=== PATIENT | male | born 1985 | race Caucasian/White ===

== ENCOUNTER 2016-11-14 09:43 | Emergency (ER) | payer OTHER ==
[~2016-11-14] VITALS: Ht 175.3 cm; Wt 81.1 kg
[~2016-11-14 09:43] MED LIST: ACET-1256 PO; IBUP-1050 PO
[2016-11-14 09:51] VITALS: TEMP 36.9; Ht 175.3 cm; Wt 81.1 kg
[2016-11-14] MEDS ORDERED: PARO30TA5 PO (10:12)
[2016-11-14] MEDS ORDERED: QUET1TAB10 PO (10:12)
[2016-11-14] MEDS ORDERED: [UNRECOGNIZED DRUG - CODE] PO (10:12)
[2016-11-14] MEDS ORDERED: KETOROLAC TROMETHAMINE 30 MG/ML VIAL IV STA (10:26)
[2016-11-14] MEDS ORDERED: ONDANSETRON INJ 2 MG/ML 2 ML VIAL IV STA (10:26)
[2016-11-14] MEDS ORDERED: SODIUM CHLORIDE 0.9% 1000ML 1,000 ML IV STA (10:26)
[2016-11-14] MEDS ORDERED: ALBUT/IPRATROP 3MG/0.5MG NEB 3 ML VIAL INH STA (10:26)
--- NOTE | 2016-11-14 10:32 | EMERGENCY ROOM VISIT NOTE ---
History Report prepared by Sarahibmecca: Herminia Knott Under the Supervision of: Dr. Olya Hinton M.D. First contact with patient: 10:18 Chief Complaint: FLU LIKE SX Stated Complaint: FLU LIKE SX History of Present Illness The patient is a 31 year old male who presents to the Emergency Room with complaints of worsening flu-like symptoms over the past week. The patient started off with a cough and a head cold for the past week. Yesterday, he developed a fever which has been between 100 and 101, body aches, hot and cold flashes, nausea, and diarrhea. Currently he complains of ear pain and some shortness of breath. His mother notes that he has been blowing green mucous with occasional blood from his nose. He is a smoker. He hasn't taken any medications for his symptoms this morning. Source of History: patient Onset: a week ago Position: other (global) Quality: other (flu-like symptoms) Timing: worsening Associated Symptoms: + SOB, + chills, + cough, + diarrhea, + fevers, + nausea Note: Other symptoms: ear pain, hot flashes Review of Systems See HPI for pertinent positives & negatives. A total of 10 systems reviewed and were otherwise negative. Past Medical & Surgical Medical Problems: (1) attention deficit disorder (2) Nephrotic syndrome Surgical Problems: (1) S/P tonsillectomy Family History Patient reports no known family medical history. Social History Smoking Status: Current Every Day Smoker Alcohol Use: none Drug Use: none, heroin Marital Status: single Occupation Status: unemployed, disabled Current/Historical Medications Scheduled Paroxetine (Paroxetine HCl), 1 TAB PO DAILY Paroxetine (Paroxetine HCl), 1 TAB PO DAILY Quetiapine Fumarate (Seroquel), 200 MG PO HS Allergies Coded Allergies: No Known Allergies (Unverified , 11/14/16) Physical Exam Vital Signs Date Time Temp Pulse Resp B/P Pulse Ox O2 Delivery O2 Flow Rate FiO2 11/14/16 12:50 82 18 145/65 96 11/14/16 12:24 82 18 145/65 96 Room Air 11/14/16 11:14 66 20 129/79 100 Room Air 11/14/16 10:03 77 11/14/16 09:59 81 98 Room Air 11/14/16 09:51 36.9 152 20 120/68 92 Room Air Physical Exam Vital signs reviewed. General: Disheveled, somewhat ill-appearing 31 year old male, in no significant distress. HEENT: No scleral icterus, PERRLA, poor dentition, neck supple. Atraumatic. Cardiovascular: Regular rate and rhythm, no extra sounds. Pulmonary: Diffuse scattered wheezing, normal work of breathing. Abdomen: Soft, nontender, nondistended, positive bowel sounds. Musculoskeletal: Atraumatic, no peripheral edema. Neurologic: Patient awake alert and oriented x 3, full strength in all 4 extremities. Cranial nerves 2 through 12 grossly intact. Skin: Warm, dry, no rash Medical Decision & Procedures ER Provider Diagnostic Interpretation: Radiology results as stated below per my review and radiologist interpretation: CHEST ONE VIEW PORTABLE CLINICAL HISTORY: fever, cough , SOB COMPARISON STUDY: No previous studies for comparison. FINDINGS: The cardiac and mediastinal contours are normal. There is no evidence of focal pulmonary consolidation. There is no evidence of failure. No pleural effusions are visualized.[ IMPRESSION: No active disease in the chest. Electronically signed by: Schuyler Fajardo M.D. 11/14/2016 10:47 AM Dictated Date/Time: 11/14/2016 10:47 AM Laboratory Results 11/14/16 10:35 Red Blood Count 5.46, Mean Corpuscular Volume 84.4, Mean Corpuscular Hemoglobin 29.7, Mean Corpuscular Hemoglobin Concent 35.1, Mean Platelet Volume 10.3, Neutrophils (%) (Auto) 77.6, Lymphocytes (%) (Auto) 13.4, Monocytes (%) (Auto) 8.6, Eosinophils (%) (Auto) 0.2, Basophils (%) (Auto) 0.2, Neutrophils # (Auto) 6.85, Lymphocytes # (Auto) 1.18, Monocytes # (Auto) 0.76, Eosinophils # (Auto) 0.02, Basophils # (Auto) 0.02 11/14/16 10:35 Test 11/14/16 10:30 11/14/16 10:35 Influenza Type A Antigen Neg for Influ A (NEG) Influenza Type B Antigen Neg for Influ B (NEG) White Blood Count 8.83 K/uL (4.8-10.8) Red Blood Count 5.46 M/uL (4.7-6.1) Hemoglobin 16.2 g/dL (14.0-18.0) Hematocrit 46.1 % (42-52) Mean Corpuscular Volume 84.4 fL (80-100) Mean Corpuscular Hemoglobin 29.7 pg (25-34) Mean Corpuscular Hemoglobin Concent 35.1 g/dl (32-36) Platelet Count 203 K/uL (130-400) Mean Platelet Volume 10.3 fL (7.4-10.4) Neutrophils (%) (Auto) 77.6 % Lymphocytes (%) (Auto) 13.4 % Monocytes (%) (Auto) 8.6 % Eosinophils (%) (Auto) 0.2 % Basophils (%) (Auto) 0.2 % Neutrophils # (Auto) 6.85 K/uL (1.4-6.5) Lymphocytes # (Auto) 1.18 K/uL (1.2-3.4) Monocytes # (Auto) 0.76 K/uL (0.11-0.59) Eosinophils # (Auto) 0.02 K/uL (0-0.5) Basophils # (Auto) 0.02 K/uL (0-0.2) RDW Standard Deviation 40.7 fL (36.4-46.3) RDW Coefficient of Variation 13.3 % (11.5-14.5) Immature Granulocyte % (Auto) 0.0 % Immature Granulocyte # (Auto) 0.00 K/uL (0.00-0.02) Anion Gap 9.0 mmol/L (3-11) Est Creatinine Clear Calc Drug Dose 113.8 ml/min Estimated GFR () 124.0 Estimated GFR (Non- 107.0 BUN/Creatinine Ratio 11.8 (10-20) Calcium Level 9.1 mg/dl (8.5-10.1) Total Bilirubin 0.4 mg/dl (0.2-1) Direct Bilirubin 0.1 mg/dl (0-0.2) Aspartate Amino Transf (AST/SGOT) 85 U/L (15-37) Alanine Aminotransferase (ALT/SGPT) 308 U/L (12-78) Alkaline Phosphatase 106 U/L (45-117) Total Protein 7.6 gm/dl (6.4-8.2) Albumin 4.0 gm/dl (3.4-5.0) Hepatitis A IgM Antibody NON-REACTIVE (NON-REACTIVE) Hepatitis B Surface Antigen NEG (NEG) Hepatitis B Core IgM Antibody NON-REACTIVE (NON-REACTIVE) Hepatitis C Antibody PRELIM POS (NEG) Laboratory results per my review. Medications Administered Medications (Trade) Dose Ordered Sig/Oma Route Start Time Stop Time Status Last Admin Dose Admin Albuterol/ Ipratropium (Duoneb) 3 ml NOW STAT INH 11/14/16 10:26 11/14/16 10:28 DC 11/14/16 10:46 3 ML Ketorolac Tromethamine 30 mg 30 mg NOW STAT IV 11/14/16 10:26 11/14/16 10:28 DC 11/14/16 10:46 30 MG Sodium Chloride (Nss 1000ml) 1,000 ml @ 999 mls/hr Q1H1M STAT IV 11/14/16 10:26 11/14/16 11:26 DC 11/14/16 10:44 999 MLS/HR Ondansetron HCl (Zofran Inj) 4 mg NOW STAT IV 11/14/16 10:26 11/14/16 10:28 DC 11/14/16 10:26 4 MG Albuterol (Ventolin Hfa Inhaler) 2 puffs NOW ONCE INH 11/14/16 12:45 11/14/16 12:46 DC 11/14/16 12:57 2 PUFFS ED Course 1026: The patient was evaluated in room C7. A complete history and physical examination was performed. Ordered Zofran Inj 4 mg IV, NSS 1000 ml @ 999 mls/hr IV, Toradol Inj 30 mg IV, DuoNeb 3 ml INH. 1233: Upon reevaluation, the patient appeared to have improvement of his symptoms. I discussed findings with the patient. He verbalized agreement of the treatment plan. The patient was discharged home. 1245: Ordered Albuterol 2 puffs INH. Medical Decision Fever: Influenza, other viral illness, pneumonia, urinary tract infection, metabolic abnormality, medication effect, cellulitis, meningitis, intra-abdominal source. This patient was evaluated and appeared to be in no significant distress. IV access was obtained and laboratory work was drawn. Chest x-ray was obtained and is negative for acute pathology. Laboratory work reveals elevated liver enzymes, negative influenza swab. Hepatitis panel was added. Patient was informed of the findings. He was advised to Ibuprofen 600 every 6 hours as needed for pain or fever. She was given an albuterol nebulizer treatment. He will drink plenty of clear fluids. The patient will return to the ER for worsening of symptoms or any medical concerns. Impression Primary Impression: Viral illness Scribe Attestation The scribe's documentation has been prepared under my direction and personally reviewed by me in its entirety. I confirm that the note above accurately reflects all work, treatment, procedures, and medical decision making performed by me. Departure Information Dispostion Home / Self-Care Referrals No Doctor, Assigned (PCP) Patient Instructions My [facility] Additional Instructions Diagnosis: Viral illness Drink plenty of clear fluids. Hepatitis panel is pending, call [phone] for results in 24 hours. Ibuprofen 600 mg every 6 hours as needed for pain, fever. Albuterol 2 puffs every 4 hours as needed for wheezing, cough. Follow up with a primary doctor BAKARI. Return to emergency for worsening of symptoms or any medical concerns.
--- NOTE | 2016-11-14 10:48 | DIAGNOSTIC IMAGING REPORT ---
CHEST ONE VIEW PORTABLE CLINICAL HISTORY: fever, cough , SOB COMPARISON STUDY: No previous studies for comparison. FINDINGS: The cardiac and mediastinal contours are normal. There is no evidence of focal pulmonary consolidation. There is no evidence of failure. No pleural effusions are visualized.[ IMPRESSION: No active disease in the chest. Electronically signed by: Schuyler Fajardo M.D. 11/14/2016 10:47 AM Dictated Date/Time: 11/14/2016 10:47 AM
[2016-11-14 10:56] LABS: BASO % 0.2 %; BASO ABS # 0.02 K/uL (0-0.2); COMPLETE YES; EOS % 0.2 %; HEMATOCRIT 46.1 % (42-52); LYMPH % 13.4 %; LYMPH ABS # 1.18 K/uL (1.2-3.4); MEAN CELL VOLUME 84.4 fL (80-100); MEAN CORPUSCULAR HEMOGLOBIN 29.7 pg (25-34); MEAN CORPUSCULAR HGB CONC 35.1 g/dl (32-36); MEAN PLATELET VOLUME 10.3 fL (7.4-10.4); MONO % 8.6 %; NEUT % 77.6 %; PLATELET COUNT 203 K/uL (130-400); RED BLOOD COUNT 5.46 M/uL (4.7-6.1); WHITE BLOOD COUNT 8.83 K/uL (4.8-10.8)
[2016-11-14 11:15] LABS: BUN/CREATININE RATIO 11.8 (10-20); CALCIUM 9.1 mg/dl (8.5-10.1); CREATININE 0.95 mg/dl (0.60-1.40); POTASSIUM 4.2 mmol/L (3.5-5.1)
[2016-11-14] MEDS ORDERED: ALBUTEROL HFA 8 GM INHALER INH ONE (12:45)
[2016-11-14 12:50] VITALS: BP 145/65; PULSE 82; O2SAT 96
[2016-11-15 22:36] LABS: HEPATITIS C RNA TMA QUAL Detected
[2016-12-13] MEDS ORDERED: OMEP40CA41 PO (17:54)
== END 2016-11-14 12:50 | disposition home or self-care (01) ==
LOC: C.EDB 09:46 → C.EDC 12:50
DX: B34.9 Viral infection, unspecified (principal); F90.9 Attention-deficit hyperactivity disorder, unspecified type; F17.200 Nicotine dependence, unspecified, uncomplicated; Z87.441 Personal history of nephrotic syndrome; Z98.890 Other specified postprocedural states; Z79.899 Other long term (current) drug therapy

== ENCOUNTER 2016-12-10 22:45 | Emergency (ER) | payer OTHER ==
[~2016-12-10] VITALS: Ht 154.9 cm; Wt 80.7 kg
[~2016-12-10 22:45] MED LIST changes: -ACET-1256 PO; -IBUP-1050 PO; +PARO30TA5 PO; +QUET1TAB10 PO; +[UNRECOGNIZED DRUG - CODE] PO
[2016-12-10 22:48] VITALS: TEMP 37; Ht 154.9 cm; Wt 80.7 kg
[2016-12-11] MEDS ORDERED: SODIUM CHLORIDE 0.9% 1000ML 1,000 ML IV STA (00:27)
[2016-12-11] MEDS ORDERED: ONDANSETRON INJ 2 MG/ML 2 ML VIAL IV STA ×2 (00:27→02:42)
[2016-12-11] MEDS ORDERED: OPTIRAY 320 IV PRN (00:45)
[2016-12-11 01:05] LABS: BASO % 0.1 %; BASO ABS # 0.01 K/uL (0-0.2); COMPLETE YES; HEMATOCRIT 45.9 % (42-52); IG% 0.4 %; LYMPH % 9.2 %; LYMPH ABS # 1.42 K/uL (1.2-3.4); MEAN CORPUSCULAR HEMOGLOBIN 30.9 pg (25-34); MEAN CORPUSCULAR HGB CONC 37.3 g/dl (32-36); MONO % 6.3 %; PLATELET COUNT 254 K/uL (130-400); RED BLOOD COUNT 5.53 M/uL (4.7-6.1); WHITE BLOOD COUNT 15.36 K/uL (4.8-10.8)
[2016-12-11 01:27] LABS: ALT/SGPT 85 U/L (12-78); AST/SGOT 28 U/L (15-37); BLOOD UREA NITROGEN 20 mg/dl (7-18); CALCIUM 9.5 mg/dl (8.5-10.1); CARBON DIOXIDE 23 mmol/L (21-32); CHLORIDE 106 mmol/L (98-107); GLUCOSE 144 mg/dl (70-99); MAGNESIUM 1.9 mg/dl (1.8-2.4); POTASSIUM 3.6 mmol/L (3.5-5.1); SODIUM 144 mmol/L (136-145)
[2016-12-11 01:29] LABS: ALB/GLOB RATIO 1.3 (0.9-2); ALKALINE PHOSPHATASE 80 U/L (45-117); C-REACTIVE PROTEIN < 0.29 mg/dl (0-0.29)
[2016-12-11 02:17] LABS: URINE APPEARANCE CLOUDY (CLEAR); URINE COLOR DK YELLOW; URINE EPITHELIAL CELL AUTO >30 /lpf (0-5); URINE NITRITE NEG (NEG); URINE PH 5.5 (4.5-7.5); URINE SPECIFIC GRAVITY 1.037 (1.000-1.030); UROBILINOGEN NEG (NEG); ZZUR CULT IF INDIC CLEAN CATCH NO
[2016-12-11 02:23] LABS: MANUAL MICROSCOPIC REQUIRED? NO; REVIEW REQ? YES; URINE BILIRUBIN NEG (NEG)
[2016-12-11 02:33] LABS: URINE MUCUS PRESENT (NONE PRSENT)
[2016-12-11 02:35] LABS: BENZODIAZEPINE, URINE NEG (NEG); COCAINE,URINE NEG (NEG); PHENCYCLIDINE, URINE NEG (NEG)
[2016-12-11] MEDS ORDERED: GI COCKTAIL PO ONE (03:30)
[2016-12-11] MEDS ORDERED: ALUMINUM/MAGNESIUM SUSP 30 ML UDC ONE (03:32)
[2016-12-11] MEDS ORDERED: LIDOCAINE HCL 2% VISC SOLN 20 ML UDC ONE (03:32)
[2016-12-11] MEDS ORDERED: ONDANSETRON HOME PACK 4MG OD TAB PO ONE (04:15)
[2016-12-11] MEDS ORDERED: ONDA4TAB10 SL (04:31)
--- NOTE | 2016-12-11 04:32 | EMERGENCY ROOM VISIT NOTE ---
History First contact with patient: 00:18 Chief Complaint: FLU LIKE SX Stated Complaint: SICK,VOMITING History of Present Illness The patient is a 31 year old male who presents to the Emergency Department by private vehicle for evaluation of his nausea and vomiting. He's had a symptoms for the past 2 days. He started with diarrhea yesterday. He complains of diffuse abdominal pain. He reports no history of previous abdominal surgeries. He denies any recent long distance travel, consumption of raw/undercooked foods, drinking from poor water sources, recent antibiotic use. He denies any recent sick contacts. He reports subjective fevers. He denies any recent alcohol or substance use. He reports a prior history of heroin use. He rates his current discomfort as a 10/10. He denies any chest pain, palpitations, short of breath, hematemesis, hematochezia, melena, hematuria, or dysuria. Review of Systems A complete 10-point Review of Systems was discussed with the patient, with pertinent positives and negatives listed in the History of Present Illness. All remaining Review of Systems questions can be considered negative unless otherwise specified. Past Medical/Surgical History Medical Problems: (1) attention deficit disorder (2) Nephrotic syndrome Surgical Problems: (1) S/P tonsillectomy Family History Patient reports no known family medical history. Social History Smoking Status: Never Smoker Alcohol Use: none Drug Use: heroin Marital Status: single Occupation Status: unemployed, disabled Current/Historical Medications Scheduled Omeprazole (Prilosec), 20 MG PO DAILY Paroxetine (Paroxetine HCl), 1 TAB PO DAILY Paroxetine (Paroxetine HCl), 1 TAB PO DAILY Quetiapine Fumarate (Seroquel), 200 MG PO HS Allergies Coded Allergies: No Known Allergies (Unverified , 12/11/16) Physical Exam Vital Signs Date Time Temp Pulse Resp B/P Pulse Ox O2 Delivery O2 Flow Rate FiO2 12/11/16 04:40 90 16 137/71 100 12/11/16 02:43 68 18 102/67 97 Room Air 12/11/16 00:49 68 18 134/68 98 Room Air 12/11/16 00:27 88 12/10/16 22:48 37.0 78 20 126/79 100 Room Air Pain Rating (0-10): 10 Physical Exam VITAL SIGNS - Vital signs and nursing notes were reviewed. GENERAL - 31-year-old male appearing his stated age who is in no acute distress. Communicates well with provider and answers questions appropriately. LUNGS - Chest wall symmetric without accessory muscle use, intercostals retractions, or central cyanosis. Normal vesicular breath sounds CTA B/L. No wheezes, rales, or rhonchi appreciated. CARDIAC - RRR with S1/S2. No murmur, rubs, or gallops appreciated. ABDOMEN - Abdominal contour flat and without pulsations or visible masses. BS normoactive all four quadrants. Subjective tenderness to palpation appreciated diffusely throughout the abdomen. No guarding. No Rebound Tenderness. Negative Rovsing's. Negative Roman's. No palpable masses, hepatosplenomegaly, or ascites noted. PSYCH - A&Ox3 and cooperates fully with examiner. Medical Decision & Procedures ER Provider Diagnostic Interpretation: Radiological imaging and reports were reviewed by myself. Radiologist's Interpretation per [facility] as follows: CT ABDOMEN & PELVIS: No GI or urinary tract obstruction. Appendix is not identified. No clear inflammation about the cecal tip. Laboratory Results 12/11/16 00:40 Red Blood Count 5.53, Mean Corpuscular Volume 83.0, Mean Corpuscular Hemoglobin 30.9, Mean Corpuscular Hemoglobin Concent 37.3, Mean Platelet Volume 11.0, Neutrophils (%) (Auto) 84.0, Lymphocytes (%) (Auto) 9.2, Monocytes (%) (Auto) 6.3, Eosinophils (%) (Auto) 0.0, Basophils (%) (Auto) 0.1, Neutrophils # (Auto) 12.90, Lymphocytes # (Auto) 1.42, Monocytes # (Auto) 0.97, Eosinophils # (Auto) 0.00, Basophils # (Auto) 0.01 12/11/16 00:40 Test 12/11/16 00:00 12/11/16 00:40 Urine Color DK YELLOW Urine Appearance CLOUDY (CLEAR) Urine pH 5.5 (4.5-7.5) Urine Specific [place] 1.037 (1.000-1.030) Urine Protein 3+ (NEG) Urine Glucose (UA) NEG (NEG) Urine Ketones 2+ (NEG) Urine Occult Blood 2+ (NEG) Urine Nitrite NEG (NEG) Urine Bilirubin NEG (NEG) Urine Urobilinogen NEG (NEG) Urine Leukocyte Esterase NEG (NEG) Urine WBC (Auto) 1-5 /hpf (0-5) Urine RBC (Auto) 5-10 /hpf (0-4) Urine Hyaline Casts (Auto) 10-30 /lpf (0-5) Urine Epithelial Cells (Auto) >30 /lpf (0-5) Urine Bacteria (Auto) NEG (NEG) Urine Renal Epithelial Cells /lpf (0-5) Urine Mucus PRESENT (NONE PRSENT) Urine Opiates Screen NEG (NEG) Urine Methadone, Qualitative NEG (NEG) Urine Barbiturates NEG (NEG) Urine Phencyclidine (PCP) Level NEG (NEG) Ur Amphetamine/Methamphetamine NEG (NEG) MDMA (Ecstasy) Screen NEG (NEG) Urine Benzodiazepines Screen NEG (NEG) Urine Cocaine Metabolite NEG (NEG) Urine Marijuana (THC) NEG (NEG) White Blood Count 15.36 K/uL (4.8-10.8) Red Blood Count 5.53 M/uL (4.7-6.1) Hemoglobin 17.1 g/dL (14.0-18.0) Hematocrit 45.9 % (42-52) Mean Corpuscular Volume 83.0 fL (80-100) Mean Corpuscular Hemoglobin 30.9 pg (25-34) Mean Corpuscular Hemoglobin Concent 37.3 g/dl (32-36) Platelet Count 254 K/uL (130-400) Mean Platelet Volume 11.0 fL (7.4-10.4) Neutrophils (%) (Auto) 84.0 % Lymphocytes (%) (Auto) 9.2 % Monocytes (%) (Auto) 6.3 % Eosinophils (%) (Auto) 0.0 % Basophils (%) (Auto) 0.1 % Neutrophils # (Auto) 12.90 K/uL (1.4-6.5) Lymphocytes # (Auto) 1.42 K/uL (1.2-3.4) Monocytes # (Auto) 0.97 K/uL (0.11-0.59) Eosinophils # (Auto) 0.00 K/uL (0-0.5) Basophils # (Auto) 0.01 K/uL (0-0.2) RDW Standard Deviation 39.8 fL (36.4-46.3) RDW Coefficient of Variation 13.1 % (11.5-14.5) Immature Granulocyte % (Auto) 0.4 % Immature Granulocyte # (Auto) 0.06 K/uL (0.00-0.02) Anion Gap 15.0 mmol/L (3-11) Est Creatinine Clear Calc Drug Dose 74.8 ml/min Estimated GFR () 84.9 Estimated GFR (Non- 73.2 BUN/Creatinine Ratio 15.0 (10-20) Calcium Level 9.5 mg/dl (8.5-10.1) Magnesium Level 1.9 mg/dl (1.8-2.4) Total Bilirubin 0.8 mg/dl (0.2-1) Aspartate Amino Transf (AST/SGOT) 28 U/L (15-37) Alanine Aminotransferase (ALT/SGPT) 85 U/L (12-78) Alkaline Phosphatase 80 U/L (45-117) C-Reactive Protein < 0.29 mg/dl (0-0.29) Total Protein 8.5 gm/dl (6.4-8.2) Albumin 4.8 gm/dl (3.4-5.0) Globulin 3.7 gm/dl (2.5-4.0) Albumin/Globulin Ratio 1.3 (0.9-2) Lipase 198 U/L (73-393) Medications Administered Medications (Trade) Dose Ordered Sig/Oma Route Start Time Stop Time Status Last Admin Dose Admin Sodium Chloride (Nss 1000ml) 1,000 ml @ 999 mls/hr Q1H1M STAT IV 12/11/16 00:27 12/11/16 01:27 DC 12/11/16 00:33 999 MLS/HR Ondansetron HCl (Zofran Inj) 4 mg NOW STAT IV 12/11/16 00:27 12/11/16 00:29 DC 12/11/16 00:33 4 MG Ondansetron HCl (Zofran Inj) 4 mg NOW STAT IV 12/11/16 02:42 12/11/16 02:43 DC 12/11/16 02:42 4 MG Al Hydroxide/Mg Hydroxide (Maalox Susp) 30 ml STK-MED ONCE .ROUTE 12/11/16 03:32 12/11/16 03:35 DC 12/11/16 03:36 30 ML Lidocaine HCl (Viscous Lidocaine 2% Soln) 20 ml STK-MED ONCE .ROUTE 12/11/16 03:32 12/11/16 03:36 DC 12/11/16 03:32 20 ML Ondansetron HCl (ZOFRAN ODT 4MG Home Pack) 1 homepack UD ONCE PO 12/11/16 04:15 12/11/16 04:16 DC 12/11/16 04:40 1 HOMEPACK ED Course Patient was seen and evaluated by myself. Previous emergency department visit notes were reviewed. Labs were drawn, saline lock in place. Patient was hydrated with 1000 mL normal saline bolus and received 4 mg Zofran intravenously for nausea. Laboratory results demonstrate a moderate leukocytosis. The patient is not anemic. There are no significant electrolyte abnormalities. CRP is not elevated. The patient was treated with an additional 4 mg Zofran for nausea part returning from CT. He was provided a GI cocktail as well. CT results above. Laboratory results and imaging studies were reviewed with the patient who acknowledges understanding. He was encouraged to follow with his primary care provider from today's visit. He was educated on worrisome symptoms for return visit to the emergency department. Patient discharged home afebrile and in good condition. Medical Decision Given the patient's presentation and stated complaints, I did elect to perform the above-mentioned workup. The patient presents today with nausea, vomiting, diarrhea, and subjective abdominal discomfort. He has no fever. He does have a leukocytosis, however. His CRP is not elevated to suggest acute setting of infectious cause. Leukocytosis concerning be related to stress factors related to vomiting. CT was unremarkable. Patient has history of drug abuse. He was treated with IV Zofran and GI cocktail with moderate relief of symptoms. The patient was encouraged to follow-up with his primary care provider from today's visit. He was educated on worrisome symptoms for return visit to the emergency department. Patient discharged home afebrile and in good condition. In the evaluation and treatment of this patient, the following differential diagnoses were considered: Appendicitis, Diverticulitis, Diverticulosis, Colitis , Ischemic Colitis, Inflammatory Bowel Disease, Irritable Bowel Disease, Testicular Torsion, Kidney Stone, Pyelonephritis, Hydronephrosis, Cholecystitis , Ascending Cholangitis, Choledocholithiasis, GERD. Impression Primary Impression: Nausea, vomiting and diarrhea Additional Impression: Abdominal pain Departure Information Dispostion Home / Self-Care Condition GOOD Referrals No Doctor, Assigned (PCP) Patient Instructions ED Food Poison Or Gastroenteritis, [facility] Additional Instructions You have been treated in the Emergency Department your Nausea, Vomiting, and Diarrhea. Laboratory results and imaging studies have ruled out any emergent causes for your abdominal pain which would warrant admission or surgery. You have been prescribed Zofran to be used for any nausea or vomiting. Take as prescribed. For pain control, you can use the following [id number] medicines (if >12 yo): - Regular strength (325mg/tab) Tylenol (acetaminophen) 2 tabs every 4-6 hours as needed. Do not exceed 12 tablets in a 24 hour period. Avoid taking more than 4 grams (4000 mg) of Tylenol per day. This includes any other sources of acetaminophen you may take on a regular basis. - Regular strength (200 mg/tab) Advil (ibuprofen) 1-2 tabs every 4-6 hours as needed. Do not exceed a dose of 3200 mg per day. Drink plenty of water and stay well hydrated. As with any trip to the Emergency Department, you should follow-up with your Primary Care Provider from today's visit. Return to the emergency department if your symptoms persist despite treatment plan outlined above or if the following symptoms occur: increased fevers, chills , worsening nausea/vomiting, blood in your stool or urine. Problem Qualifiers Additional Impression: Abdominal pain Abdominal location: right upper quadrant Qualified Codes: R10.11 - Right upper quadrant pain
[2016-12-11 04:40] VITALS: BP 137/71; PULSE 90; O2SAT 100
--- NOTE | 2016-12-11 07:26 | DIAGNOSTIC IMAGING REPORT ---
CT ABD/PELVIS IV CONTRAST ONLY CLINICAL HISTORY: Severe generalized abdominal pain COMPARISON STUDY: None. TECHNIQUE: Following the IV administration of 91 mL of Optiray-320, CT scan of the abdomen and pelvis was performed from the lung bases to the proximal femurs. Images are reviewed in the axial, sagittal, and coronal planes. IV contrast was administered without complication. CT DOSE: 290.04 mGy.cm FINDINGS: Lower chest: The heart is normal in size and configuration, without pericardial effusion. The lung bases and pleural spaces are clear. Liver: The contrast-enhanced liver is normal in size, contour, and attenuation. There is no intrahepatic biliary ductal dilatation. The hepatic veins and portal veins are patent. Gallbladder: Unremarkable. Spleen: Normal in size and attenuation. Pancreas: Unremarkable. Adrenal glands: Unremarkable. Kidneys: There is symmetric renal cortical enhancement. The kidneys are normal in size without hydronephrosis. Bowel: There are no transition zones indicate bowel obstruction. There are no findings to indicate acute diverticulitis. There are no findings to indicate acute appendicitis. Peritoneum: There is no intraperitoneal free air or abdominal ascites. Vasculature: The abdominal aorta is normal in course and caliber. Adenopathy: None. Pelvic viscera: The bladder, and pelvic viscera are unremarkable. Skeletal structures: There is an L1 vertebral body hemangioma. There is a left iliac bone island. There is a left inferior pubic ramus bone island. IMPRESSION: 1. No evidence of bowel obstruction. No evidence of free air 2. No evidence of acute appendicitis. No evidence of acute diverticulitis. Electronically signed by: Schuyler Fajardo M.D. 12/11/2016 7:25 AM Dictated Date/Time: 12/11/2016 7:22 AM
[2016-12-13] MEDS ORDERED: OMEP40CA41 PO (17:54)
== END 2016-12-11 04:40 | disposition home or self-care (01) ==
LOC: C.EDB 22:46
DX: R11.2 Nausea with vomiting, unspecified (principal); R19.7 Diarrhea, unspecified; R10.9 Unspecified abdominal pain; F90.9 Attention-deficit hyperactivity disorder, unspecified type; N04.9 Nephrotic syndrome with unspecified morphologic changes; Z98.890 Other specified postprocedural states; Z79.899 Other long term (current) drug therapy

== ENCOUNTER 2016-12-11 12:39 | Inpatient (IN) | payer OTHER ==
[~2016-12-11] VITALS: Ht 175.3 cm; Wt 82.6 kg
[~2016-12-11 12:39] MED LIST changes: +ONDA4TAB10 SL
[2016-12-11 13:57] LABS: BASO % 0.1 %; BASO ABS # 0.02 K/uL (0-0.2); COMPLETE YES; HEMATOCRIT 45.4 % (42-52); IG% 0.3 %; LYMPH % 12.4 %; LYMPH ABS # 1.89 K/uL (1.2-3.4); MEAN CELL VOLUME 85.5 fL (80-100); MEAN CORPUSCULAR HEMOGLOBIN 31.3 pg (25-34); MEAN CORPUSCULAR HGB CONC 36.6 g/dl (32-36); MONO % 9.5 %; NEUT % 77.7 %; PLATELET COUNT 222 K/uL (130-400); RED BLOOD COUNT 5.31 M/uL (4.7-6.1)
[2016-12-11] MEDS ORDERED: PROMETHAZINE HCL INJ 12.5 MG in SODIUM CHLORIDE 0.9% 50ML 50 ML IV STA (14:15)
[2016-12-11] MEDS ORDERED: MoRPHine SULFATE 10 MG/ML CARP/VIAL IV STA (14:15)
[2016-12-11 14:24] LABS: BUN/CREATININE RATIO 17.6 (10-20); CALCIUM 9.2 mg/dl (8.5-10.1); CREATININE 1.1 mg/dl (0.60-1.40); POTASSIUM 3.5 mmol/L (3.5-5.1)
[2016-12-11 14:27] LABS: ALB/GLOB RATIO 1.3 (0.9-2)
--- NOTE | 2016-12-11 14:43 | DIAGNOSTIC IMAGING REPORT ---
PA CHEST RADIOGRAPH AND UPRIGHT AND SUPINE AP RADIOGRAPHS OF THE ABDOMEN CLINICAL HISTORY: Vomiting. COMPARISON STUDY: Chest radiograph November 14, [address] of the abdomen and pelvis December 11, 2016. FINDINGS: Lung volumes are normal. Lungs are clear. There is no pneumothorax or pleural effusion. Cardiac size is normal. Mediastinal contours are normal. There is no evidence of pulmonary edema. There is no free air. The bowel gas pattern is normal. IMPRESSION: 1. No free air or evidence of bowel obstruction. 2. No acute cardiopulmonary findings. Electronically signed by: Pablo Antunez M.D. 12/11/2016 2:41 PM Dictated Date/Time: 12/11/2016 2:40 PM
[2016-12-11] MEDS ORDERED: MoRPHine SULFATE 4 MG/ML 1 ML CARP\\VIAL IV STA (16:03)
[2016-12-11] MEDS ORDERED: MoRPHine SULFATE 4 MG/ML 1 ML CARP\\VIAL ONE (16:07)
--- NOTE | 2016-12-11 16:09 | EMERGENCY ROOM VISIT NOTE ---
History Report prepared by Meghan: Mehreen Salazar Under the Supervision of: Dr. Klaus Fierro M.D. First contact with patient: 14:08 Chief Complaint: VOMITING Stated Complaint: VOMITING, ABD PAIN History of Present Illness The patient is a 31 year old male who presents to the Emergency Room with complaints of persistent vomiting starting 3 days ago. He is nauseous and unable to keep anything down. The patient was seen in the ED earlier today for the same symptoms and left around 0500. Since then the vomiting has not stopped and might be getting worse according to his family member. He has experienced some hematemesis. He is not experiencing any relief of his symptoms with Zofran. He has had upper abdominal pain starting earlier today. He had some diarrhea 3 days ago at the onset of the vomiting, but currently does not have any diarrhea. The patient's family reports that it might be because he has not been able to eat anything since the symptoms started. He has been taking ice baths at times because he becomes too hot. At times he feels too cold. He denies any bloody stools. He denies any other medical problems. Source of History: family Onset: 3 days ago Position: other (global) Quality: other (vomiting) Timing: other (persistent) Associated Symptoms: + abdominal pain (upper), + chills, + fevers, + nausea , No melena Note: Pt reports feeling too hot and too cold. Review of Systems See HPI for pertinent positives & negatives. A total of 10 systems reviewed and were otherwise negative. Past Medical & Surgical Medical Problems: (1) attention deficit disorder (2) Nephrotic syndrome Surgical Problems: (1) S/P tonsillectomy Family History Patient reports no known family medical history. Social History Smoking Status: Current Every Day Smoker Alcohol Use: none Drug Use: none, heroin Marital Status: single Occupation Status: unemployed, disabled Current/Historical Medications Scheduled Paroxetine (Paroxetine HCl), 1 TAB PO DAILY Paroxetine (Paroxetine HCl), 1 TAB PO DAILY Quetiapine Fumarate (Seroquel), 200 MG PO HS Scheduled PRN Ondasetron Odt (Zofran Odt), 1 TAB SL Q6 PRN for Nausea or Vomiting Allergies Coded Allergies: No Known Allergies (Unverified , 12/11/16) Physical Exam Vital Signs Date Time Temp Pulse Resp B/P Pulse Ox O2 Delivery O2 Flow Rate FiO2 12/11/16 15:35 55 16 133/71 99 Room Air 12/11/16 12:43 37.2 79 22 155/71 98 Room Air Physical Exam Constitutional: Vital signs reviewed. Eyes: Pupils are equal round reactive to light. Conjunctiva are noninjected. ENT: Pharynx is clear without erythema or exudate. Mucous membranes are dry. Neck supple without meningeal signs. Respiratory: Clear to auscultation bilaterally. Breath sounds are equal bilaterally. Cardiovascular: Regular rate and rhythm. No rubs or gallops. GI: Soft, nondistended. Bowel sounds are present. Diffuse abdominal tenderness. Musculoskeletal: No peripheral edema. No lower extremity tenderness. Integumentary: No cyanosis. Neurological: The patient is awake and alert. No focal deficits. Psychiatric: Anxious appearing. Medical Decision & Procedures ER Provider Diagnostic Interpretation: X-ray results as stated below per interpretation by me and the radiologist: PA CHEST RADIOGRAPH AND UPRIGHT AND SUPINE AP RADIOGRAPHS OF THE ABDOMEN CLINICAL HISTORY: Vomiting. COMPARISON STUDY: Chest radiograph November 14, [address] of the abdomen and pelvis December 11, 2016. FINDINGS: Lung volumes are normal. Lungs are clear. There is no pneumothorax or pleural effusion. Cardiac size is normal. Mediastinal contours are normal. There is no evidence of pulmonary edema. There is no free air. The bowel gas pattern is normal. IMPRESSION: 1. No free air or evidence of bowel obstruction. 2. No acute cardiopulmonary findings. Electronically signed by: Pablo Antunez M.D. 12/11/2016 2:41 PM Dictated Date/Time: 12/11/2016 2:40 PM Laboratory Results 12/11/16 13:40 Red Blood Count 5.31, Mean Corpuscular Volume 85.5, Mean Corpuscular Hemoglobin 31.3, Mean Corpuscular Hemoglobin Concent 36.6, Mean Platelet Volume 11.0, Neutrophils (%) (Auto) 77.7, Lymphocytes (%) (Auto) 12.4, Monocytes (%) (Auto) 9.5, Eosinophils (%) (Auto) 0.0, Basophils (%) (Auto) 0.1, Neutrophils # (Auto) 11.79, Lymphocytes # (Auto) 1.89, Monocytes # (Auto) 1.45, Eosinophils # (Auto) 0.00, Basophils # (Auto) 0.02 12/11/16 13:40 Test 3/28/17 13:40 White Blood Count 15.20 K/uL (4.8-10.8) Red Blood Count 5.31 M/uL (4.7-6.1) Hemoglobin 16.6 g/dL (14.0-18.0) Hematocrit 45.4 % (42-52) Mean Corpuscular Volume 85.5 fL (80-100) Mean Corpuscular Hemoglobin 31.3 pg (25-34) Mean Corpuscular Hemoglobin Concent 36.6 g/dl (32-36) Platelet Count 222 K/uL (130-400) Mean Platelet Volume 11.0 fL (7.4-10.4) Neutrophils (%) (Auto) 77.7 % Lymphocytes (%) (Auto) 12.4 % Monocytes (%) (Auto) 9.5 % Eosinophils (%) (Auto) 0.0 % Basophils (%) (Auto) 0.1 % Neutrophils # (Auto) 11.79 K/uL (1.4-6.5) Lymphocytes # (Auto) 1.89 K/uL (1.2-3.4) Monocytes # (Auto) 1.45 K/uL (0.11-0.59) Eosinophils # (Auto) 0.00 K/uL (0-0.5) Basophils # (Auto) 0.02 K/uL (0-0.2) RDW Standard Deviation 41.8 fL (36.4-46.3) RDW Coefficient of Variation 13.5 % (11.5-14.5) Immature Granulocyte % (Auto) 0.3 % Immature Granulocyte # (Auto) 0.05 K/uL (0.00-0.02) Anion Gap 11.0 mmol/L (3-11) Est Creatinine Clear Calc Drug Dose 98.2 ml/min Estimated GFR () 103.9 Estimated GFR (Non- 89.6 BUN/Creatinine Ratio 17.6 (10-20) Calcium Level 9.2 mg/dl (8.5-10.1) Total Bilirubin 0.7 mg/dl (0.2-1) Aspartate Amino Transf (AST/SGOT) 27 U/L (15-37) Alanine Aminotransferase (ALT/SGPT) 73 U/L (12-78) Alkaline Phosphatase 76 U/L (45-117) Total Protein 8.1 gm/dl (6.4-8.2) Albumin 4.5 gm/dl (3.4-5.0) Globulin 3.6 gm/dl (2.5-4.0) Albumin/Globulin Ratio 1.3 (0.9-2) Lipase 172 U/L (73-393) Laboratory results as reviewed by me. Medications Administered Medications (Trade) Dose Ordered Sig/Oma Route Start Time Stop Time Status Last Admin Dose Admin Morphine Sulfate 6 mg 6 mg NOW STAT IV 12/11/16 14:15 12/11/16 14:16 DC 12/11/16 14:45 6 MG Promethazine HCl/ Sodium Chloride (Phenergan Inj/ Nss 50ml) 50.5 ml @ 204 mls/hr NOW STAT IV 12/11/16 14:15 12/11/16 14:29 DC 12/11/16 14:44 204 MLS/HR Morphine Sulfate (MoRPHine SULFATE INJ) 4 mg STK-MED ONCE .ROUTE 12/11/16 16:07 12/11/16 16:08 DC 12/11/16 16:02 4 MG ED Course 1410: The patient was evaluated in room C11. A complete history and physical exam was performed. 1415: Promethazine HCl 12.5 mg/Sodium Chloride 50.5 ml @ 204 mls/hr IV, Morphine Sulfate 6 mg IV. 1527: I reevaluated the patient. He is feeling a little better, but he does not feel well enough to go home. I discussed the results and treatment plan with him. He verbalized understanding and agreement. He will be evaluated for further management. 1530: I discussed the patient's case with Dr. Morales, [facility] - hospitalist. The patient will be evaluated for further management. Medical Decision this is a 31-year-old male who presents with vomiting and abdominal pain.differential diagnosis includes gastritis, cyclic vomiting syndrome, gastroparesis, Boerhaave syndrome, dehydration, bowel obstruction. I did perform a limited focused review of portions of the patient's old chart on the electronic medical record. The patient was here earlier today at around midnight for vomiting and diarrhea. He had an unremarkable CT scan of the abdomen and pelvis. I did evaluate the patient as noted above. The patient is presenting with persistent vomiting and abdominal pain. He just had a negative CT scan of the abdomen and pelvis. IV access was established. I did treat the patient with normal saline IV. He was also given IV morphine and Phenergan. I did order and personally review the patient's abdominal and chest x-rays as described above. There is no evidence of obstruction or free air. I did order and review the patient's blood work as noted in the electronic medical record. His white blood cell count is persistently elevated. I did reassess the patient. He is feeling better. He is still having nausea and does not feel well and left to go home. I did discuss case with the hospitalist and case management rn. Consults Time Called: 1528 Consulting Physician: Leticia Garcia - hospitalist Returned Call: 1530 I discussed the patient's case with him. The patient will be evaluated for further management. Impression Primary Impression: Diffuse abdominal pain Additional Impression: Intractable vomiting Scribe Attestation The scribe's documentation has been prepared under my direct and personally reviewed by me in its entirety. I confirm that the note above accurately reflects all work, treatment, procedures, and medical decision making performed by me. Departure Information Dispostion Being Evaluated By Hospitalist Referrals No Doctor, Assigned (PCP) Patient Instructions My [facility] Problem Qualifiers Additional Impression: Intractable vomiting Vomiting type: unspecified Nausea presence: with nausea Qualified Codes: R11.2 - Nausea with vomiting, unspecified
[2016-12-11] MEDS ORDERED: ACETAMINOPHEN 325 MG TAB PO PRN (16:15)
[2016-12-11] MEDS ORDERED: PROMETHAZINE HCL INJ 25 MG in SODIUM CHLORIDE 0.9% 50ML 50 ML IV PRN (16:15)
[2016-12-11] MEDS ORDERED: PANTOprazole INJ 80 MG in DEXTROSE 5% 100ML IV ONE (16:30)
[2016-12-11] MEDS: PANTOprazole INJ 40 MG in DEXTROSE 5% 100ML IV SCH ×2 (16:54→21:49)
[2016-12-11 17:25] LABS: HEMATOCRIT 42.4 % (42-52)
--- NOTE | 2016-12-11 18:03 | HISTORY & PHYSICAL EXAMINATION ---
DATE OF ADMISSION: 12/11/2016 HISTORY AND PHYSICAL ADMISSION NOTE TIME: 4:23 p.m. HISTORY OF PRESENT ILLNESS: The patient follows up with Dr. Underwood for primary care. The patient is a 31-year-old male with a history of GERD, daily smoking, heroin addiction, depression, presenting with intractable nausea and vomiting since 3 days ago. The patient follows up with Dr. Underwood for primary care, but has not been seen him in at least couple of years. The patient was apparently at baseline state of health until last Saturday when he woke up with severe nausea, which progressed on to be associated with vomiting of previously ingested food as well as hemetemesis. The patient reports at least 1 cup of coffee ground material, each vomiting episode happens 2-3 times a day since last Saturday. Associated also with abdominal pain, mostly epigastric, radiating to the periumbilical area. The patient presented to the ER last night. CAT scan of the abdomen did not show any acute findings. He was discharged home as he improved with Zofran and fluids. Today, he presented again to the ER for persistence of abdominal pain, nausea, vomiting and still had 1-2 cups of coffee ground material vomiting today, as per patient. At the ER, KUB x-ray did not show signs of acute findings. Hemoglobin is 16.6, white count is 16.2. Creatinine is 1.1, BUN is 19. The patient was given morphine 6 mg, promethazine with mild relief of symptoms. When I examined the patient, he is lying in bed in distress secondary to abdominal pain, it was severe during my exam, now it is improving. He denies having any chest pain, shortness of breath, palpitations, dizziness, headaches. No changes with urination or bowel movement. No other symptoms noted. REVIEW OF SYSTEMS: Ten systems reviewed and negative except for the ones mentioned above. PAST MEDICAL HISTORY: 1. History of GERD, daily smoking. 2. Heroin addiction, has been clean for 4 months, per patient. 3. Depression, on Seroquel and paroxetine. Sees a psychiatrist as an outpatient. 4. Remote history of nephrotic syndrome. PAST SURGICAL HISTORY: Dental surgery and tonsil removal. PERSONAL AND SOCIAL HISTORY: He is single. Current everyday smoker, 1 pack a day for 12 years. Uses alcohol once a month.History of opioid abuse. FAMILY HISTORY: Mother, diabetes. Brother, mental disorder. Grandparents - cancer, diabetes, heart disease and stroke. MEDICATIONS: He takes paroxetine 50 mg daily and Seroquel 20 mg at bedtime. PHYSICAL EXAMINATION: VITAL SIGNS: Blood pressure noted, pulse rate 55, respiratory rate 14, temperature 37.2, saturating 99% on room air. GENERAL: The patient is awake, alert, oriented x3, in moderate distress secondary to pain but otherwise not in acute cardiorespiratory distress. HEAD AND NECK: Atraumatic and normocephalic. Normal pupils. Full EOMs. No icterus. Plain conjunctivae. ENT: Grossly normal except for poor dentition. NECK: No JVD, no lymphadenopathy or thyromegaly. HEART: Normal rate. Regular rhythm. S1, S2. No murmurs. LUNGS: Clear breath sounds bilaterally ABDOMEN: Nondistended, hyperactive bowel sounds with exquisite tenderness in all quadrants. EXTREMITIES: No pedal edema. No rashes noted. NEUROLOGIC: No gross focal motor or sensory deficits. LABORATORY DATA: White count is 15.2, hemoglobin 16.6, platelet count is 222. Chemistry - sodium noted chloride is 104, carbon dioxide 28, BUN 19, creatinine is 1.1. GFR 103 Random glucose 128, AST 27, ALT 73, lipase 172. Urinalysis obtained last night showed dark yellow, cloudy, pH of 5.5, specific gravity 1.03, protein 3+, urine glucose negative, ketones 2+, occult blood 2+. Negative for wbc's, leukocyte esterase positive, urine rbc's 5-10, hyaline casts 10-30, urine mucus present, bacteria negative. Toxicology urine is negative. KUB x-ray showing no free air, no obstruction, no acute pulmonary findings. EKG is pending. ASSESSMENT AND PLAN: This is a 31-year-old male with a history of gastroesophageal reflux disease, smoking, heroin addiction history, depression, nephrotic syndrome, presenting with intractable nausea, vomiting, abdominal pain and hematemesis. 1. Intractable nausea and vomiting with abdominal pain, possible upper gastrointestinal bleed. Rule out peptic ulcer disease, gastritis, esophageal tear, rule out perforation. We will repeat CT of the abdomen today because of the patient's persistent symptoms and exquisite abdominal tenderness to rule out perforation, no other acute process. We will start him with n.p.o. status, Protonix drip, morphine p.r.n. and Phenergan p.r.n. for nausea. Will consult GI for possible endoscopy. H\T\H q. 6 will be monitored. 2. Mildly elevated fasting blood glucose. Positive history of diabetes in family. Check A1c. Check BSGs for now. 3. History of nephrotic syndrome with proteinuria, hematuria. Baseline creatinine is 0.8 and at this time it is 1.1. We will provide patient with IV fluids and will consult nephrology. 4. History of smoking, 1 pack a day. Will order nicotine patch. 5. History of depression, mood is stable per patient. Will continue Paxil and Seroquel after obtaining EKG and QT is okay. 6. History of opioid addiction, currently has been off necrotic about 4 months according to the patient. Will need to be very cautious in prescribing him with narcotics, but NSAIDs contraindicated at this time because of the suspicion for peptic ulcer disease and possibly worsening renal function. Monitor closely. 7. Deep venous thrombosis prophylaxis, sequential compression devices for now. Anticoagulation contraindicated as the patient reports hematemesis. 8. Code status. Full code per patient. DISPOSITION: Pending. Anticipate discharge home when medically stable. In my clinical best clinical judgment, the patient meets criteria to be admitted to hospital for at least 2 midnights for further evaluation and management of intractable nausea, vomiting, abdominal pain, and possible upper GI bleed. MTDD
[2016-12-11 18:06] VITALS: O2SAT 98
--- NOTE | 2016-12-11 18:18 | DIAGNOSTIC IMAGING REPORT ---
CT SCAN OF THE ABDOMEN AND PELVIS WITHOUT IV CONTRAST CLINICAL HISTORY: Generalized abdominal pain. COMPARISON STUDY: Contrast-enhanced abdominal CT performed earlier the same day 12/11/2016. TECHNIQUE: CT scan of the abdomen and pelvis is performed from the lung bases to the proximal femora. Images are reviewed in the axial, sagittal, and coronal planes. IV contrast was not administered for this examination as per the front clinician. Automated dose control exposure was utilized. CT DOSE: 268.03 mGy.cm FINDINGS: Lung bases: The heart is normal in size and without pericardial effusion. The lung bases are clear. There is a small hiatal hernia. Liver: The unenhanced liver is normal in size, contour, and attenuation. There is no intrahepatic biliary ductal dilatation. Gallbladder: The gallbladder is normal in appearance. Hyperdense material within the gallbladder lumen is consistent with vicariously excreted contrast. Spleen: Normal in size and attenuation. Pancreas: Unremarkable. Adrenal glands: Unremarkable. Kidneys: The unenhanced kidneys are normal in size and without hydronephrosis. There are no renal calculi identified. There is no evidence of contour deforming renal mass lesion. Abdominal vasculature: The abdominal aorta is normal in course and caliber. Bowel: The small bowel and colon are normal in course and caliber. No thick walled bowel loops are identified. The appendix is well-visualized and normal. Peritoneum: There is no intraperitoneal free air or abdominal ascites. There is a small fat-containing umbilical hernia. Lymphadenopathy: None. Pelvic viscera: Excreted contrast fills the bladder. The prostate and seminal vesicles are normal as imaged. Skeletal structures: No lytic or blastic lesions are seen. Hemangiomas are noted in the body of L1. A bone island is noted within the right pedicle of L5 and within the medial left ilium. There is a hemitransitional left lumbar sacral segment. IMPRESSION: There are no acute infectious or inflammatory findings in the abdomen or pelvis. There has been no significant change from today's earlier examination. Electronically signed by: Aleksandr Marmolejo M.D. 12/11/2016 6:17 PM Dictated Date/Time: 12/11/2016 6:10 PM
[2016-12-11 18:27] VITALS: BP 123/76; PULSE 82; TEMP 37.2; BMI 26.2
[2016-12-11] MEDS: NSS + 20MEQ KCL 1000ML 1,000 ML IV SCH (18:48)
[2016-12-11] MEDS: MoRPHine SULFATE 4 MG/ML 1 ML CARP\\VIAL IV PRN (18:50)
[2016-12-11 19:27] LABS: URINE APPEARANCE CLOUDY (CLEAR); URINE COLOR DK YELLOW; URINE EPITHELIAL CELL AUTO >30 /lpf (0-5); URINE NITRITE NEG (NEG); URINE PH 6.5 (4.5-7.5); URINE SPECIFIC GRAVITY 1.037 (1.000-1.030); UROBILINOGEN NEG (NEG); ZZUR CULT IF INDIC CLEAN CATCH NO
[2016-12-11 19:29] LABS: MANUAL MICROSCOPIC REQUIRED? NO; REVIEW REQ? NO
[2016-12-11 19:31] LABS: URINE BILIRUBIN NEG (NEG)
[2016-12-11 19:57] VITALS: BP 123/73; PULSE 76; TEMP 37; O2SAT 95
[2016-12-11] MEDS: QUETIAPINE FUMARATE 200 MG TAB PO SCH (21:49)
[2016-12-12] VITALS (7 sets, daily range): BP systolic 106–152; BP diastolic 55–71; PULSE 56–76; TEMP 36.6–37.2; O2SAT 95–100; Ht 175.3 cm; Wt 82.6 kg
[2016-12-12] MEDS: NSS + 20MEQ KCL 1000ML 1,000 ML IV SCH ×2 (01:05→08:05)
[2016-12-12] MEDS: PANTOprazole INJ 40 MG in DEXTROSE 5% 100ML IV SCH ×3 (02:31→11:30)
[2016-12-12 04:41] LABS: HEMATOCRIT 40.6 % (42-52)
[2016-12-12 06:29] LABS: ESTIMATED AVERAGE GLUCOSE 105 mg/dl; HA1C FLAG Normal (Normal)
[2016-12-12] MEDS ORDERED: INFLUENZA VIRUS QUAD VACCINE 0.5 ML SYR IM. ONE (08:00)
[2016-12-12] MEDS ORDERED: INFLUENZA ADMINISTRATION CHARGE ONE (08:00)
--- NOTE | 2016-12-12 08:45 | Gastrointestinal Consultation ---
Gastrointestinal Consultation Date of Consultation: Dec 12, 2016 Consulting Physician: Brando Reason for Consultation: hematemesis, coffee ground emesis History of Present Illness Mr. aPblo Starr is a 31 year old male with past medical history significant for IV heroin use (last use 4 months ago), tobacco abuse, depression, ADD, GERD and nephrotic syndrome who presents to the ED for evaluation of nausea and vomiting x 4 days. He was seen in the ED on two occasions for his symptoms. Provided with fluids and zofran and sent home. He is unable to identify any sick contacts. He is unable to eat or drink anything due to the nausea and vomiting. He is also reporting awful epigastric pain, sharp stabbing. Worse to touch, no alleviating factors. Radiates up his chest. Self reports of coffee ground appearing emesis of 4 different occurrences and hematemesis over the past few days. The BRB was mixed with his emesis, reports it was much more than a few streaks. No emesis since he has been admitted to the floor. There was diarrhea the first day of the onset of his symptoms. He has not moved his bowels since. Denies any BRBPR or melena. Reports of fever and chills. Denies any new medications. No daily steroid use. + NSAIDs use. + caffeine use (unable to identify how much) + tobacco use. Denies drug use. CT ABD 12/12/16 PM: There are no acute infectious or inflammatory findings in the abdomen or pelvis. There has been no significant change from today's earlier examination. CT ABD 12/12/16 AM: No evidence of bowel obstruction. No evidence of free air No evidence of acute appendicitis. No evidence of acute diverticulitis. Chest/ABD XR 12/12/16: Lung volumes are normal. Lungs are clear. There is no pneumothorax or pleural effusion. Cardiac size is normal. Mediastinal contours are normal. There is no evidence of pulmonary edema. There is no free air. The bowel gas pattern is normal. EGD/Colon: not previously performed. No known cardiac history. No known respiratory issues. No previous issues with anesthesia. Past Medical/Surgical History Medical Problems: (1) Abdominal pain Status: Acute (2) Diffuse abdominal pain Status: Acute (3) Intractable vomiting Status: Acute (4) Nausea, vomiting and diarrhea Status: Acute (5) Viral illness Status: Acute Family History Patient reports no known family medical history. Social History Smoking Status: Current Every Day Smoker Alcohol Use: none Drug Use: none, heroin Marital Status: single Occupation Status: unemployed, disabled Allergies Coded Allergies: No Known Allergies (Unverified , 12/11/16) Current Medications Home Meds and Scripts Medications Dose Route/Sig Max Daily Dose Days Date Category Dose Instructions Zofran Odt (Ondansetron HCl) 4 Mg Tab 1 Tab SL Q6 PRN 5 12/11/16 Rx Paroxetine HCl (Paroxetine) 30 Mg Tab 1 Tab PO DAILY 11/14/16 Reported TOTAL DOSE IS 50MG Paroxetine HCl (Paroxetine) 20 Mg Tab 1 Tab PO DAILY 11/14/16 Reported TOTAL DOSE IS 50MG Seroquel (Quetiapine Fumarate) 200 Mg Tab 200 Mg PO HS 11/14/16 Reported Review of Systems Constitutional: + chills, + fever Respiratory: No cough, No shortness of breath Cardiac: No chest pain, No edema Abdomen: + GI bleeding, + nausea, + pain, + vomiting, No constipation, No diarrhea, No dysphagia, No odynophagia Physical Exam Date Time Temp Pulse Resp B/P Pulse Ox O2 Delivery O2 Flow Rate FiO2 12/12/16 07:15 36.8 56 18 121/71 97 Room Air 12/12/16 04:50 36.8 63 16 115/67 96 12/12/16 04:00 Room Air 12/12/16 00:07 37.2 76 16 121/70 95 Room Air 12/12/16 00:00 Room Air 12/11/16 20:00 Room Air 12/11/16 19:57 37.0 76 16 123/73 95 Room Air 12/11/16 18:27 37.2 82 16 123/76 Room Air 12/11/16 18:06 59 16 134/59 98 Room Air 12/11/16 16:55 66 16 138/75 99 Room Air 12/11/16 15:35 55 16 133/71 99 Room Air 12/11/16 12:43 37.2 79 22 155/71 98 Room Air General Appearance: + mild distress Eyes: PERRL ENT: hearing grossly normal Neck: supple, trachea midline Respiratory/Chest: lungs clear, normal breath sounds, no respiratory distress, no accessory muscle use Cardiovascular: regular rate, rhythm, no edema, no gallop, no JVD, no murmur Abdomen: soft, no organomegaly, no pulsatile mass, + tenderness (generalized, worse in epigastric region) Neurologic/Psych: alert, normal mood/affect, oriented x 3 Skin: normal color, no jaundice, warm/dry, no rash Laboratory Results Last 24 Hours Test 12/11/16 13:40 12/11/16 17:18 12/11/16 19:17 12/11/16 22:10 White Blood Count 15.20 K/uL Red Blood Count 5.31 M/uL Hemoglobin 16.6 g/dL 15.3 g/dL 14.9 g/dL Hematocrit 45.4 % 42.4 % 42.0 % Mean Corpuscular Volume 85.5 fL Mean Corpuscular Hemoglobin 31.3 pg Mean Corpuscular Hemoglobin Concent 36.6 g/dl Platelet Count 222 K/uL Mean Platelet Volume 11.0 fL Neutrophils (%) (Auto) 77.7 % Lymphocytes (%) (Auto) 12.4 % Monocytes (%) (Auto) 9.5 % Eosinophils (%) (Auto) 0.0 % Basophils (%) (Auto) 0.1 % Neutrophils # (Auto) 11.79 K/uL Lymphocytes # (Auto) 1.89 K/uL Monocytes # (Auto) 1.45 K/uL Eosinophils # (Auto) 0.00 K/uL Basophils # (Auto) 0.02 K/uL RDW Standard Deviation 41.8 fL RDW Coefficient of Variation 13.5 % Immature Granulocyte % (Auto) 0.3 % Immature Granulocyte # (Auto) 0.05 K/uL Sodium Level 143 mmol/L Potassium Level 3.5 mmol/L Chloride Level 104 mmol/L Carbon Dioxide Level 28 mmol/L Anion Gap 11.0 mmol/L Blood Urea Nitrogen 19 mg/dl Creatinine 1.10 mg/dl Est Creatinine Clear Calc Drug Dose 98.2 ml/min Estimated GFR () 103.9 Estimated GFR (Non- 89.6 BUN/Creatinine Ratio 17.6 Random Glucose 128 mg/dl Calcium Level 9.2 mg/dl Total Bilirubin 0.7 mg/dl Aspartate Amino Transf (AST/SGOT) 27 U/L Alanine Aminotransferase (ALT/SGPT) 73 U/L Alkaline Phosphatase 76 U/L Total Protein 8.1 gm/dl Albumin 4.5 gm/dl Globulin 3.6 gm/dl Albumin/Globulin Ratio 1.3 Lipase 172 U/L Urine Color DK YELLOW Urine Appearance CLOUDY Urine pH 6.5 Urine Specific Success 1.037 Urine Protein 3+ Urine Glucose (UA) NEG Urine Ketones TRACE Urine Occult Blood 2+ Urine Nitrite NEG Urine Bilirubin NEG Urine Urobilinogen NEG Urine Leukocyte Esterase TRACE Urine WBC (Auto) 1-5 /hpf Urine RBC (Auto) 10-30 /hpf Urine Hyaline Casts (Auto) 5-10 /lpf Urine Epithelial Cells (Auto) >30 /lpf Urine Bacteria (Auto) NEG Test 12/12/16 04:08 12/12/16 07:35 12/12/16 08:20 Hemoglobin 14.3 g/dL Hematocrit 40.6 % Estimated Average Glucose 105 mg/dl Hemoglobin A1c 5.3 % Bedside Glucose 100 mg/dl Impression Patient is a 31 year old male with N/V/D and fever/chills x 4 days who developed hematemesis and coffee ground emesis. Differentials include viral gastroenteritis, Cecilia Mcrae tear, PUD, gastritis, etc. His vitals are stable , H&H 14/40. Plan NPO PPI drip EGD today Further recommendations pending results of EGD
--- NOTE | 2016-12-12 08:59 | NEPHROLOGY CONSULTATION ---
DATE OF CONSULTATION: 12/12/2016 DATE OF CONSULTATION: 12/12/2016. ATTENDING OF RECORD: Dr. Morales. REASON FOR CONSULTATION: History of nephrotic syndrome. HISTORY OF PRESENT ILLNESS: This is a 31-year-old male who does not actively follow with any doctors who had a history of nephrotic syndrome as a child. The patient remembers having a procedure done at the age of 3 and was followed by physician pediatrician in [place] until the age of 18. The patient did not follow up with any kidney doctors since then. The patient does have significant history of smoking and history of heroin addiction for about 15 years. The patient stopped using heroin about 3 months ago and since then has had diffuse muscle aches, pains, migraines. The patient attempted using high dose NSAIDs for about a month without relief and started having significant abdominal pain and nausea and vomiting, had coffee-ground emesis. The patient did not want to go to the Emergency Room; however, girlfriend made him go. The patient was found to have an elevated white count of 15,000, hemoglobin level is 16, creatinine is good at 1.1. Liver enzymes are normal. Urine shows a concentrated urine specimen with a specific gravity of 1.037, 3+ protein, 2+ blood, 10-30 RBCs, trace leukocyte esterase, nitrite negative. The patient was started on a Protonix drip as well as normal saline with 20 mEq of potassium at 150 mL an hour. Abdominal pelvis CT was done for his abdominal pain without IV contrast and showed no significant findings. Kidneys were normal in size without hydronephrosis, no kidney stones identified. Abdominal x-ray showed no acute cardiopulmonary findings. No free air or evidence of bowel obstruction. REVIEW OF SYSTEMS: Positive migraines. Positive decreased appetite. Positive nausea and vomiting. Positive abdominal pain. No shortness of breath. No chest pain. Positive diffuse myalgias, no rash or itching, no blurry vision, no dysphagia, no hematuria, no diarrhea or constipation. All other review of systems otherwise negative. PAST MEDICAL HISTORY: Nephrotic syndrome as a child, heroin addiction clean for about 3 months, depression, GERD, active tobacco use. PAST SURGICAL HISTORY: Kidney biopsy as a child, tonsillectomy. SOCIAL HISTORY: Active smoker, 1 pack a day for 12 years. Occasional alcohol. History of heroin clean for 4 months. FAMILY HISTORY: Significant for diabetes in mother. CURRENT MEDICATIONS: Paxil 50 mg daily, Seroquel 200 mg at night, normal saline with 20 of K at 150 mL an hour, Protonix drip. PHYSICAL EXAMINATION: VITAL SIGNS: Temperature 36.8, pulse 63, respiratory rate 16, blood pressure 115/67, sating 96% on room air. GENERAL: Awake, alert, oriented x3, appears to be uncomfortable. EYES: No scleral icterus. HEAD, EYES, EARS, NOSE, AND THROAT: Moist mucous membranes. NECK: Supple. PULMONARY: Clear to auscultation. CARDIAC: Regular rate and rhythm. ABDOMEN: Mid epigastric tenderness. Bowel sounds positive. Nondistended. EXTREMITIES: No significant clubbing, cyanosis or edema. NEUROLOGICALLY: Nonfocal. DERMATOLOGY: No rash or ulcers noted. LABORATORY DATA: White count is 15, H\T\H 14 and 40, platelet count is 222. Sodium level 143, potassium 3.5, chloride is 104, bicarb is 28, BUN is 19, creatinine is 1.1. Hemoglobin A1c is 5.3, calcium is 9.2, albumin is 4.5. Lipase 172. UA shows 3+ protein, 2+ blood, 10-30 RBCs, specific gravity 1.037, pH 6.[address] without contrast showed normal sized kidneys with no hydro. ASSESSMENT AND PLAN: History of nephrotic syndrome, last seen by a physician pediatrician at the age of 18. The patient does have active tobacco use, history of high dose NSAIDs for about a month and a history of heroin. Would like to check hepatitis serologies and would like to check a random protein to creatinine and recheck a ua as well as urine culture. Concerning that the patient has blood and protein in the urine; however, had a concentrated urine specimen and would like to hydrate the patient and see if the urine clears. May be worthwhile to check serologies. If the patient continues to have blood in the urine, although it is a good sign that the patient's creatinine still only 1.1, so perhaps with the findings of protein and blood in his urine could be secondary to the concentrated urine specimen. Lets first check a protein to creatinine, screen for hepatitis given his heroin history and would also like to screen for HIV as well and repeat a urine and check a urine culture. If urine culture is negative and continues to have blood in the urine, would recommend doing a serologic workup to further evaluate the blood in the urine. 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 However, given his history and findings of protein and blood in the urine specimen worthwhile to do a new evaluation. Appreciate consultation. JOHNNY
[2016-12-12] MEDS: PAROXETINE 20 MG TAB PO SCH ×2 (09:00→11:04)
[2016-12-12] MEDS ORDERED: PAROXETINE PO SCH (09:00)
[2016-12-12] MEDS: MoRPHine SULFATE 4 MG/ML 1 ML CARP\\VIAL IV PRN (09:29)
[2016-12-12 10:23] LABS: HEMATOCRIT 40.2 % (42-52); MEAN CORPUSCULAR HEMOGLOBIN 30.7 pg (25-34); MEAN CORPUSCULAR HGB CONC 35.3 g/dl (32-36); MEAN PLATELET VOLUME 10.3 fL (7.4-10.4); PLATELET COUNT 143 K/uL (130-400); RED BLOOD COUNT 4.62 M/uL (4.7-6.1); WHITE BLOOD COUNT 9.83 K/uL (4.8-10.8)
[2016-12-12] MEDS ORDERED: PROPOFOL IV EMULSION 10 MG/ML 20 ML VIAL IV ONE (12:18)
[2016-12-12] MEDS ORDERED: LIDOCAINE HCL 2% 2 ML VIAL (20MG/ML) ONE (12:18)
[2016-12-12] MEDS ORDERED: MIDAZOLAM HCL 1 MG/ML 2ML VIAL ONE (12:19)
--- NOTE | 2016-12-12 12:31 | GI REPORT ---
Procedure Date: 12/12/2016 12:13 PM Procedure: Upper GI endoscopy Indications: Coffee-ground emesis after several days of nausea with vomiting Medicines: See the Anesthesia note for documentation of the administered medications Complications: No immediate complications. Estimated blood loss: None. Estimated Blood Loss: Estimated blood loss: none. Procedure: Pre-Anesthesia Assessment: - Prior to the procedure, a History and Physical was performed, and patient medications, allergies and sensitivities were reviewed. The patient's tolerance of previous anesthesia was reviewed. - The risks and benefits of the procedure and the sedation options and risks were discussed with the patient. All questions were answered and informed consent was obtained. - Patient identification and proposed procedure were verified prior to the procedure by the physician and the nurse. The procedure was verified in the pre-procedure area in the procedure room. - Mental Status Examination: alert and oriented. Airway Examination: normal oropharyngeal airway and neck mobility. Respiratory Examination: clear to auscultation. CV Examination: normal. Abdominal Examination: bowel sounds present, abdomen soft and non-tender, no masses or organomegaly noted. - ASA Grade Assessment: II - A patient with mild systemic disease. After obtaining informed consent, the endoscope was passed under direct vision. Throughout the procedure, the patient's blood pressure, pulse, and oxygen saturations were monitored continuously. The scope was introduced through the mouth, and advanced to the second part of duodenum. The upper GI endoscopy was accomplished without difficulty. The patient tolerated the procedure well. Findings: A single small non-bleeding erosion was found in the lower third of the esophagus. Mild inflammation characterized by erythema was found in the entire examined stomach. The examined duodenum was normal. Impression: - Esophageal erosions related to several days of vomiting. - Mild gastritis. No ulcers. - Normal examined duodenum. Recommendation: - No aspirin, ibuprofen, naproxen, or other non-steroidal anti-inflammatory drugs. - Use Prilosec (omeprazole) 20 mg PO daily. - Advance diet as tolerated. - Return patient to [facility] for possible discharge same day. Ysabel Michaels D.O. Ysabel Michaels DO 12/12/2016 12:30:52 PM This report has been signed electronically. Note Initiated On: 12/12/2016 12:13 PM I attest to the content of the Intraoperative Record and orders documented therein, exceptions below
--- NOTE | 2016-12-12 12:57 | Anesthesiology Progress Note ---
Anesthesia Post Op Note Date & Time Dec 12, 2016 at 12:57 Vital Signs Pain Intensity: 0 Vital Signs Past 12 Hours Date Time Temp Pulse Resp B/P Pulse Ox O2 Delivery O2 Flow Rate FiO2 12/12/16 12:40 78 77 119/86 97 Room Air 12/12/16 12:30 88 18 115/63 96 Room Air 12/12/16 11:58 36.6 71 18 152/67 100 Room Air 12/12/16 11:55 36.6 71 18 152/67 100 Room Air 12/12/16 11:48 37.3 60 18 142/70 99 Room Air 12/12/16 08:00 Room Air 12/12/16 07:15 36.8 56 18 121/71 97 Room Air 12/12/16 04:50 36.8 63 16 115/67 96 12/12/16 04:00 Room Air Notes Mental Status: alert / awake / arousable, participated in evaluation Pt Amnestic to Procedure: Yes Nausea / Vomiting: adequately controlled Pain: adequately controlled Airway Patency, RR, SpO2: stable & adequate BP & HR: stable & adequate Hydration State: stable & adequate Anesthetic Complications: no major complications apparent
--- NOTE | 2016-12-12 13:19 | Progress Note ---
Progress Note Date of Service Dec 12, 2016. Progress Note EGD today with esophageal erosions related to several days of vomiting. Mild gastritis. No ulcers. Normal examined duodenum. GI suggest no aspirin, ibuprofen, naproxen, or other non-steroidal anti- inflammatory drugs. Omeprazole 20 mg PO daily. Advance diet as tolerated. No GI contraindication to discharge.
[2016-12-12 15:32] LABS: URINE APPEARANCE CLEAR (CLEAR); URINE BILIRUBIN NEG (NEG); URINE COLOR ORANGE; URINE NITRITE NEG (NEG); URINE PH 6.5 (4.5-7.5); URINE SPECIFIC GRAVITY 1.031 (1.000-1.030); UROBILINOGEN NEG (NEG)
[2016-12-12 15:33] LABS: MANUAL MICROSCOPIC REQUIRED? NO; REVIEW REQ? NO
--- NOTE | 2016-12-12 15:40 | Progress Note ---
Medicine Progress Note Date & Time of Visit: Dec 12, 2016 at 14:22. Subjective Pt was seen and examined Lying in bed with no distress Pt said that the vomiting stops he said that he continue to have abdominal pain and nausea denies any fever, sob, chest pain and palpitation Objective Last 8 Hrs Date Time Temp Pulse Resp B/P Pulse Ox O2 Delivery O2 Flow Rate FiO2 12/12/16 12:50 60 18 110/98 98 Room Air 12/12/16 12:40 78 77 119/86 97 Room Air 12/12/16 12:30 88 18 115/63 96 Room Air 12/12/16 12:00 Room Air 12/12/16 11:58 36.6 71 18 152/67 100 Room Air 12/12/16 11:55 36.6 71 18 152/67 100 Room Air 12/12/16 11:48 37.3 60 18 142/70 99 Room Air 12/12/16 08:00 Room Air 12/12/16 07:15 36.8 56 18 121/71 97 Room Air Physical Exam: General- No acute distress Head- atraumatic Eyes- PERRL, EOMI ENT- Poor dentition Neck- supple, no JVD Lungs- clear to auscultation, No wheezing Heart- regular rhythm; no murmur Abdomen- normal bowel sounds, soft, +tender Extremities- no pretibial edema, no calf tenderness Neuro- alert, oriented x 3; PERRL, EOMI Skin- warm & dry, +tattoos Laboratory Results: Last 24 Hours Test 12/11/16 17:18 12/11/16 19:17 12/11/16 22:10 12/12/16 04:08 Hemoglobin 15.3 g/dL 14.9 g/dL 14.3 g/dL Hematocrit 42.4 % 42.0 % 40.6 % Urine Color DK YELLOW Urine Appearance CLOUDY Urine pH 6.5 Urine Specific [place] 1.037 Urine Protein 3+ Urine Glucose (UA) NEG Urine Ketones TRACE Urine Occult Blood 2+ Urine Nitrite NEG Urine Bilirubin NEG Urine Urobilinogen NEG Urine Leukocyte Esterase TRACE Urine WBC (Auto) 1-5 /hpf Urine RBC (Auto) 10-30 /hpf Urine Hyaline Casts (Auto) 5-10 /lpf Urine Epithelial Cells (Auto) >30 /lpf Urine Bacteria (Auto) NEG Estimated Average Glucose 105 mg/dl Hemoglobin A1c 5.3 % Test 12/12/16 07:35 12/12/16 10:10 Bedside Glucose 100 mg/dl White Blood Count 9.83 K/uL Red Blood Count 4.62 M/uL Hemoglobin 14.2 g/dL Hematocrit 40.2 % Mean Corpuscular Volume 87.0 fL Mean Corpuscular Hemoglobin 30.7 pg Mean Corpuscular Hemoglobin Concent 35.3 g/dl RDW Standard Deviation 43.5 fL RDW Coefficient of Variation 13.8 % Platelet Count 143 K/uL Mean Platelet Volume 10.3 fL Assessment & Plan Intractable nausea and hematemesis with abdominal pain Need to Rule out peptic ulcer disease, gastritis, esophageal tear, perforation. CT abdomen show no acute infectious or inflammatory findings in the abdomen or pelvis. On PPI hgb stable tramadol for the pain GI consulted and EGD done this morning that showed: Esophageal erosions related to several days of vomiting. Mild gastritis. No ulcers. Recommendation as per GI no NSAIDs Prilosec 20mg daily Mildly elevated fasting blood glucose. HBa1c 5.3 . History of nephrotic syndrome at a child UA positive for proteinuria, blood. Nephro consulted recommended to check protein to creatinine ratio screen for hepatitis and HIV Recheck UA and Urine cx Tobacco abuse Nicotine patch counseling on smoking cessation History of depression Continue Paxil and Seroquel stable History of opioid addiction has been clean for about 4 months as per patient will do tramadol for the pain No NSAIDs due to the hematemesis DVT px SCDs Code Status Full code Consultants: gastro, Nephrology Procedures: EGD Current Inpatient Medications: Current Inpatient Medications Medications (Trade) Dose Ordered Sig/Oma Route Start Time Stop Time Status Last Admin Dose Admin Morphine Sulfate 4 mg 4 mg Q4H PRN IV 12/11/16 16:15 12/25/16 16:14 12/12/16 09:29 4 MG Promethazine HCl 25 mg/Sodium Chloride 51 ml @ 204 mls/hr Q6H PRN IV 12/11/16 16:15 01/10/17 16:14 Potassium Chloride/Sodium Chloride 1,000 ml @ 150 mls/hr Q6H40M IV 12/11/16 18:15 01/10/17 16:15 12/12/16 08:05 150 MLS/HR Pantoprazole Sodium/Dextrose (Protonix Inj/D5 100ml) 100 ml @ 20 mls/hr Q5H IV 12/11/16 16:45 01/10/17 16:44 12/12/16 11:30 20 MLS/HR Acetaminophen (Tylenol Tab) 650 mg Q4H PRN PO 12/11/16 16:15 01/10/17 16:14 Paroxetine HCl (pAXil TAB) 50 mg DAILY PO 12/12/16 09:00 01/11/17 08:59 12/12/16 11:04 50 MG Quetiapine Fumarate (seroQUEL TAB) 200 mg HS PO 12/11/16 22:00 01/10/17 21:59 12/11/16 21:49 200 MG Tramadol HCl (Ultram Tab) 50 mg Q6H PRN PO 12/11/16 23:30 01/10/17 23:29
[2016-12-12 16:19] LABS: URINE PROTIEN/CREAT RATIO 0.1 (0-0.2); URINE TOTAL PROTEIN 55.3 mg/dl (0-11.9)
[2016-12-12] MEDS ORDERED: NURSING VERBAL MED ORDER ONE (19:15)
[2016-12-12] MEDS: TRAMADOL HCL 50 MG TAB PO PRN (20:40)
[2016-12-12] MEDS: QUETIAPINE FUMARATE 200 MG TAB PO SCH (22:24)
[2016-12-13 00:03] VITALS: BP 138/69; PULSE 59; TEMP 36.6; O2SAT 96
[2016-12-13 04:00] VITALS: BP 116/71; PULSE 59; TEMP 36.3; O2SAT 98
[2016-12-13 07:23] VITALS: BP 126/69; PULSE 64; TEMP 36.4; O2SAT 98
[2016-12-13 07:40] LABS: BUN/CREATININE RATIO 21.6 (10-20); CALCIUM 8.1 mg/dl (8.5-10.1); CREATININE 0.77 mg/dl (0.60-1.40); POTASSIUM 3.5 mmol/L (3.5-5.1)
--- NOTE | 2016-12-13 08:29 | Nephrology Progress Note ---
Nephrology Progress Note Date of Service: Dec 13, 2016. Subjective 31 yo male with hx of nephrotic syndrome as a child, last seen by pediatric nephrology at age of 18. presented with abdominal pain and diffuse muscle aches. hx of heroin, tobacco abuse. hx of high dose nsaids. urine still concentrated. continues to have abdominal pain and muscle aches. inquiring about more pain medications. Objective Date Time Temp Pulse Resp B/P Pulse Ox O2 Delivery O2 Flow Rate FiO2 12/13/16 07:23 36.4 64 18 126/69 98 Room Air 12/13/16 04:00 36.3 59 16 116/71 98 Room Air 12/13/16 04:00 Room Air 12/13/16 00:03 36.6 59 16 138/69 96 Room Air 12/13/16 00:00 Room Air 12/12/16 20:00 Room Air 12/12/16 19:50 37.2 66 18 124/70 99 Room Air 12/12/16 15:03 37.0 20 106/55 98 Room Air 12/12/16 12:50 60 18 110/98 98 Room Air 12/12/16 12:40 78 77 119/86 97 Room Air 12/12/16 12:30 88 18 115/63 96 Room Air 12/12/16 12:00 Room Air 12/12/16 11:58 36.6 71 18 152/67 100 Room Air 12/12/16 11:55 36.6 71 18 152/67 100 Room Air 12/12/16 11:48 37.3 60 18 142/70 99 Room Air Physical Exam: General-aaox3 Eyes-no scleral icterus ENT-mm dry Neck-supple Lungs-cta Heart-rrr Abdomen-bs+, +tenderness to palpation, nondistended Extremities-no c/c/e Neuro-nonfocal Current Inpatient Medications Medications (Trade) Dose Ordered Sig/Oma Route Start Time Stop Time Status Last Admin Dose Admin Morphine Sulfate 4 mg 4 mg Q4H PRN IV 12/11/16 16:15 12/25/16 16:14 12/12/16 09:29 4 MG Promethazine HCl/ Sodium Chloride (Phenergan Inj/ Nss 50ml) 51 ml @ 204 mls/hr Q6H PRN IV 12/11/16 16:15 01/10/17 16:14 Acetaminophen (Tylenol Tab) 650 mg Q4H PRN PO 12/11/16 16:15 01/10/17 16:14 Paroxetine HCl (pAXil TAB) 50 mg DAILY PO 12/12/16 09:00 01/11/17 08:59 12/12/16 11:04 50 MG Quetiapine Fumarate (seroQUEL TAB) 200 mg HS PO 12/11/16 22:00 01/10/17 21:59 12/12/16 22:24 200 MG Tramadol HCl (Ultram Tab) 50 mg Q6H PRN PO 12/11/16 23:30 01/10/17 23:29 12/12/16 20:40 50 MG Pantoprazole Sodium (Protonix Tab) 40 mg QAM PO 12/13/16 09:00 01/12/17 08:59 Last 24 Hours Test 12/12/16 10:10 12/12/16 14:30 12/12/16 16:25 12/12/16 20:36 White Blood Count 9.83 K/uL Red Blood Count 4.62 M/uL Hemoglobin 14.2 g/dL Hematocrit 40.2 % Mean Corpuscular Volume 87.0 fL Mean Corpuscular Hemoglobin 30.7 pg Mean Corpuscular Hemoglobin Concent 35.3 g/dl RDW Standard Deviation 43.5 fL RDW Coefficient of Variation 13.8 % Platelet Count 143 K/uL Mean Platelet Volume 10.3 fL Urine Color ORANGE Urine Appearance CLEAR Urine pH 6.5 Urine Specific [place] 1.031 Urine Protein 1+ Urine Glucose (UA) NEG Urine Ketones TRACE Urine Occult Blood TRACE Urine Nitrite NEG Urine Bilirubin NEG Urine Urobilinogen NEG Urine Leukocyte Esterase NEG Urine WBC (Auto) 1-5 /hpf Urine RBC (Auto) 5-10 /hpf Urine Hyaline Casts (Auto) 1-5 /lpf Urine Epithelial Cells (Auto) 10-20 /lpf Urine Bacteria (Auto) NEG Urine Random Creatinine 390.0 mg/dl Urine Random Total Protein 55.3 mg/dl Urine Protein/Creatinine Ratio 0.1 Bedside Glucose 104 mg/dl 86 mg/dl Test 12/13/16 06:34 12/13/16 07:47 Sodium Level 142 mmol/L Potassium Level 3.5 mmol/L Chloride Level 109 mmol/L Carbon Dioxide Level 27 mmol/L Anion Gap 6.0 mmol/L Blood Urea Nitrogen 17 mg/dl Creatinine 0.77 mg/dl Est Creatinine Clear Calc Drug Dose 140.3 ml/min Estimated GFR () 141.1 Estimated GFR (Non- 121.8 BUN/Creatinine Ratio 21.6 Random Glucose 82 mg/dl Calcium Level 8.1 mg/dl Hepatitis B Surface Antigen NEG Bedside Glucose 83 mg/dl Date/Time Source Procedure Growth Status 12/12/16 14:30 Urine , Clean Catch Urine Culture Pending Received Assessment & Plan BALDOMERO-creatinine was elevated at 1.1 and now 0.77, urine still very concentrated. would restart iv fluids to help with volume resuscitation. Hx of nephrotic syndrome-no proteinuria. likely had minimal change as a child and appears to have resolved. no obvious proteinuria at this time. checking hepatitis and hiv given his history to be thorough. urine showed blood and protein initially but was a concentrated specimen and appears to be improving with hydration. continue iv fluids to help clear urine. no follow up needed at this time.
[2016-12-13] MEDS: TRAMADOL HCL 50 MG TAB PO PRN ×2 (08:30→15:31)
[2016-12-13] MEDS ORDERED: PANTOprazole SOD 40 MG TAB PO SCH (09:00)
[2016-12-13] MEDS: PAROXETINE 20 MG TAB PO SCH (09:12)
[2016-12-13] MEDS: SODIUM CHLORIDE 0.9% 1000ML 1,000 ML IV SCH ×2 (09:15→16:17)
[2016-12-13 11:33] VITALS: BP 123/71; PULSE 66; TEMP 36.7; O2SAT 97
[2016-12-13 15:04] VITALS: BP 125/74; PULSE 60; TEMP 36.8; O2SAT 98
--- NOTE | 2016-12-13 17:49 | Progress Note ---
Medicine Progress Note Date & Time of Visit: Dec 13, 2016 at 17:29. Subjective Pt was seen and examined Lying in bed with no distress he said that he still having some abdominal pain that is improved tolerating regular diet no more episodes of nausea and vomiting since Objective Last 8 Hrs Date Time Temp Pulse Resp B/P Pulse Ox O2 Delivery O2 Flow Rate FiO2 12/13/16 16:00 Room Air 12/13/16 15:04 36.8 60 16 125/74 98 Room Air 12/13/16 11:53 Room Air 12/13/16 11:33 36.7 66 18 123/71 97 Room Air Physical Exam: General- No acute distress Head- atraumatic Eyes- PERRL, EOMI ENT- Poor dentition Neck- supple, no JVD Lungs- clear to auscultation, No wheezing Heart- regular rhythm; no murmur Abdomen- normal bowel sounds, soft, +tender Extremities- no pretibial edema, no calf tenderness Neuro- alert, oriented x 3; PERRL, EOMI Skin- warm & dry, +tattoos Laboratory Results: Last 24 Hours Test 12/12/16 20:36 12/13/16 06:34 12/13/16 07:47 Bedside Glucose 86 mg/dl 83 mg/dl Sodium Level 142 mmol/L Potassium Level 3.5 mmol/L Chloride Level 109 mmol/L Carbon Dioxide Level 27 mmol/L Anion Gap 6.0 mmol/L Blood Urea Nitrogen 17 mg/dl Creatinine 0.77 mg/dl Est Creatinine Clear Calc Drug Dose 140.3 ml/min Estimated GFR () 141.1 Estimated GFR (Non- 121.8 BUN/Creatinine Ratio 21.6 Random Glucose 82 mg/dl Calcium Level 8.1 mg/dl Hepatitis B Surface Antigen NEG Hepatitis C Antibody PRELIM POS HIV (1&2) Ab and P24 Ag, 4th Gener NEG Assessment & Plan Intractable nausea and hematemesis with abdominal pain Need to Rule out peptic ulcer disease, gastritis, esophageal tear, perforation. CT abdomen show no acute infectious or inflammatory findings in the abdomen or pelvis. hgb stable tramadol for the pain GI consulted and EGD done this on 12/12/16 that showed: Esophageal erosions related to several days of vomiting. Mild gastritis. No ulcers. Recommendation as per GI no NSAIDs Prilosec 20mg daily Tolerated regular diet Pain improved Mildly elevated fasting blood glucose. HBa1c 5.3 Stable History of nephrotic syndrome at a child UA positive for blood. repeat urine showed no significant proteinuria Nephro consulted on board appreciated input No need for outpatient follow as per nephro HIV screening negative Hep C screening Preliminary Hep C antibody positive Possible a false positive need to repeat screening hep c in 3 to 6 months to R/O Hep C Tobacco abuse Nicotine patch counseling on smoking cessation History of depression Continue Paxil and Seroquel stable History of opioid addiction has been clean for about 4 months as per patient will do tramadol for the pain No NSAIDs due to the hematemesis DVT px SCDs Code Status Full code Disposition [place] prescription drug monitoring reviewed Follow up with Dr. Underwood on 12/17/16 @ 1PM [address] [place] [address] Consultants: gastro, Nephrology Procedures: EGD Current Inpatient Medications: Current Inpatient Medications Medications (Trade) Dose Ordered Sig/Oma Route Start Time Stop Time Status Last Admin Dose Admin Promethazine HCl/ Sodium Chloride (Phenergan Inj/ Nss 50ml) 51 ml @ 204 mls/hr Q6H PRN IV 12/11/16 16:15 01/10/17 16:14 Acetaminophen (Tylenol Tab) 650 mg Q4H PRN PO 12/11/16 16:15 01/10/17 16:14 Paroxetine HCl (pAXil TAB) 50 mg DAILY PO 12/12/16 09:00 01/11/17 08:59 12/13/16 09:12 50 MG Quetiapine Fumarate (seroQUEL TAB) 200 mg HS PO 12/11/16 22:00 01/10/17 21:59 12/12/16 22:24 200 MG Tramadol HCl (Ultram Tab) 50 mg Q6H PRN PO 12/11/16 23:30 01/10/17 23:29 12/13/16 15:31 50 MG Pantoprazole Sodium 40 mg 40 mg QAM PO 12/13/16 09:00 01/12/17 08:59 12/13/16 08:29 40 MG Sodium Chloride (Nss 1000ml) 1,000 ml @ 125 mls/hr Q8H IV 12/13/16 08:30 01/12/17 08:29 12/13/16 16:17 125 MLS/HR
[2016-12-13] MEDS ORDERED: OMEP40CA41 PO (17:54)
--- NOTE | 2016-12-13 18:00 | Discharge Instructions ---
Discharge Instructions Date of Service Dec 13, 2016. Admission Reason for Admission: Intractable Vomiting Discharge Discharge Diagnosis / Problem: Gastoenteritis, Gastritis, Abdominal pain, Proteinuria Discharge Goals Goal(s): Decrease discomfort, Improve function, Improve disease control Activity Recommendations Activity Limitations: resume your previous activity (as tolerated) . Instructions / Follow-Up Instructions / Follow-Up Follow up with Dr. Underwood on 12/17/16 @ 1PM [address] [facility] [place] [address] Your endoscopy showed mild gastritis with no ulcers. Please avoid taking NSAIDs (such as Motrin, Ibuprofen, Meloxicam, Aleve, Naproxen) If Nausea/ vomiting reoccur please seek medical attention Counseling on Smoking cessation Current Hospital Diet Patient's current hospital diet: Regular Diet Discharge Diet Recommended Diet: Regular Diet Pending Studies Studies pending at discharge: yes List of pending studies: Hepatitis profile Laboratory Results Hemoglobin A1c Test 12/12/16 04:08 Range/Units Estimated Average Glucose 105 mg/dl Hemoglobin A1c 5.3 4.5-5.6 % Medical Emergencies . Who to Call and When: Medical Emergencies: If at any time you feel your situation is an emergency, please call 911 immediately. . Non-Emergent Contact Non-Emergency issues call your: Primary Care Provider Call Non-Emergent contact if: you have a fever, your pain is not controlled, your pain is worsening, you have any medication questions . . "Provider Documentation" section prepared by Olivier Kendrick. VTE Core Measure Inpt VTE Proph given/why not?: SCD's [place] Drug Monitoring Program Search Results: no issues identified
[2016-12-13 18:28] VITALS: BP 125/74; PULSE 60; TEMP 36.8; O2SAT 98
[2016-12-17 16:32] LABS: HEPATITIS C RNA TMA QUAL Detected
--- NOTE | 2016-12-18 14:08 | Discharge Summary ---
Discharge Summary Date of Service Dec 18, 2016. Discharge Summary Admission Date: Dec 11, 2016 at 16:15 Discharge Date: Dec 13, 2016 Discharge Disposition: Home Principal Diagnosis: Viral gastroenteritis Secondary Diagnoses/Problems: Gastroenteritis Gastritis Abdominal pain Proteinuria Procedures: EGD Consultations: gastro, Nephrology Medication Reconciliation New Medications: Omeprazole (Prilosec) 40 Mg Cap 20 MG PO DAILY for 30 Days, CAP Continued Medications: Paroxetine (Paroxetine HCl) 20 Mg Tab 1 TAB PO DAILY TOTAL DOSE IS 50MG Paroxetine (Paroxetine HCl) 30 Mg Tab 1 TAB PO DAILY TOTAL DOSE IS 50MG Quetiapine Fumarate (Seroquel) 200 Mg Tab 200 MG PO HS, TAB Admission Information HPI (per Admitting provider): HISTORY OF PRESENT ILLNESS: The patient follows up with Dr. Underwood for primary care. The patient is a 31-year-old male with a history of GERD, daily smoking, heroin addiction, depression, presenting with intractable nausea and vomiting since 3 days ago. The patient follows up with Dr. Underwood for primary care, but has not been seen him in at least couple of years. The patient was apparently at baseline state of health until last Saturday when he woke up with severe nausea, which progressed on to be associated with vomiting of previously ingested food as well as hemetemesis. The patient reports at least 1 cup of coffee ground material, each vomiting episode happens 2-3 times a day since last Saturday. Associated also with abdominal pain, mostly epigastric, radiating to the periumbilical area. The patient presented to the ER last night. CAT scan of the abdomen did not show any acute findings. He was discharged home as he improved with Zofran and fluids. Today, he presented again to the ER for persistence of abdominal pain, nausea, vomiting and still had 1-2 cups of coffee ground material vomiting today, as per patient. At the ER, KUB x-ray did not show signs of acute findings. Hemoglobin is 16.6, white count is 16.2. Creatinine is 1.1, BUN is 19. The patient was given morphine 6 mg, promethazine with mild relief of symptoms. When I examined the patient, he is lying in bed in distress secondary to abdominal pain, it was severe during my exam, now it is improving. He denies having any chest pain, shortness of breath, palpitations, dizziness, headaches. No changes with urination or bowel movement. No other symptoms noted. Physical Exam (per Admitting): VITAL SIGNS: Blood pressure noted, pulse rate 55, respiratory rate 14, temperature 37.2, saturating 99% on room air. GENERAL: The patient is awake, alert, oriented x3, in moderate distress secondary to pain but otherwise not in acute cardiorespiratory distress. HEAD AND NECK: Atraumatic and normocephalic. Normal pupils. Full EOMs. No icterus. [place] conjunctivae. ENT: Grossly normal except for poor dentition. NECK: No JVD, no lymphadenopathy or thyromegaly. HEART: Normal rate. Regular rhythm. S1, S2. No murmurs. LUNGS: Clear breath sounds bilaterally ABDOMEN: Nondistended, hyperactive bowel sounds with exquisite tenderness in all quadrants. EXTREMITIES: No pedal edema. No rashes noted. NEUROLOGIC: No gross focal motor or sensory deficits. Hospital Course Intractable nausea and hematemesis with abdominal pain Need to Rule out peptic ulcer disease, gastritis, esophageal tear, perforation. CT abdomen show no acute infectious or inflammatory findings in the abdomen or pelvis. hgb stable tramadol for the pain GI consulted and EGD done this on 12/12/16 that showed: Esophageal erosions related to several days of vomiting. Mild gastritis. No ulcers. Recommendation as per GI no NSAIDs Prilosec 20mg daily Tolerated regular diet Pain improved Mildly elevated fasting blood glucose. HBa1c 5.3 Stable History of nephrotic syndrome at a child UA positive for blood. repeat urine showed no significant proteinuria Nephro consulted on board appreciated input No need for outpatient follow as per nephro HIV screening negative Hep C screening Preliminary Hep C antibody positive Possible a false positive need to repeat screening hep c in 3 to 6 months to R/O Hep C Tobacco abuse Nicotine patch counseling on smoking cessation History of depression Continue Paxil and Seroquel stable History of opioid addiction has been clean for about 4 months as per patient will do tramadol for the pain No NSAIDs due to the hematemesis DVT px SCDs Code Status Full code Disposition [place] prescription drug monitoring reviewed Follow up [facility] Dr[facility] Under[facility]17[facility]16 [facility] [address] [facility] [id number] Total time spent on discharge = 35 minutes This includes examination of the patient, discharge planning, medication reconciliation, and communication with other providers. Discharge Instructions Discharge Instructions Date of Service Dec 13, 2016. Admission Reason for Admission: Intractable Vomiting Discharge Discharge Diagnosis / Problem: Gastroenteritis, Gastritis, Abdominal pain, Proteinuria Discharge Goals Goal(s): Decrease discomfort, Improve function, Improve disease control Activity Recommendations Activity Limitations: resume your previous activity (as tolerated) . Instructions / Follow-Up Instructions / Follow-Up Follow up with Dr. Underwood on 12/17/16 @ 1PM [address] [place] [id number] Your endoscopy showed mild gastritis with no ulcers. Please avoid taking NSAIDs (such as Motrin, Ibuprofen, Meloxicam, Aleve, Naproxen) If Nausea/ vomiting reoccur please seek medical attention Counseling on Smoking cessation Current Hospital Diet Patient's current hospital diet: Regular Diet Discharge Diet Recommended Diet: Regular Diet Pending Studies Studies pending at discharge: yes List of pending studies: Hepatitis profile Laboratory Results Hemoglobin A1c Test 12/12/16 04:08 Range/Units Estimated Average Glucose 105 mg/dl Hemoglobin A1c 5.3 4.5-5.6 % Medical Emergencies . Who to Call and When: Medical Emergencies: If at any time you feel your situation is an emergency, please call 911 immediately. . Non-Emergent Contact Non-Emergency issues call your: Primary Care Provider Call Non-Emergent contact if: you have a fever, your pain is not controlled, your pain is worsening, you have any medication questions . . "Provider Documentation" section prepared by Olivier Kendrick. VTE Core Measure Inpt VTE Proph given/why not?: SCD's [place] Drug Monitoring Program Search Results: no issues identified Additional Copies To Prince Underwood M.D.
== END 2016-12-13 19:05 | disposition home or self-care (01) | DRG 378 ==
LOC: C.EDB 12:40 → C.EDINP 16:15 → C.MED 18:29
PROVIDERS: ADMIT Internal Medicine; ATTEND Internal Medicine
PROC: 0DJ08ZZ Inspection of Upper Intestinal Tract, Via Natural or Artificial Opening Endoscopic (ICD-10-PCS; principal; 2016-12-12 12:15)
DX: K92.0 Hematemesis (principal); K22.10 Ulcer of esophagus without bleeding; N17.9 Acute kidney failure, unspecified; K29.70 Gastritis, unspecified, without bleeding; R73.01 Impaired fasting glucose; B19.20 Unspecified viral hepatitis C without hepatic coma; F32.9 Major depressive disorder, single episode, unspecified; F17.200 Nicotine dependence, unspecified, uncomplicated; F11.21 Opioid dependence, in remission; Z79.899 Other long term (current) drug therapy; Z87.441 Personal history of nephrotic syndrome; Z83.3 Family history of diabetes mellitus; Z82.49 Family history of ischemic heart disease and other diseases of the circulatory system; Z82.3 Family history of stroke; Z81.8 Family history of other mental and behavioral disorders

== ENCOUNTER 2017-03-19 11:42 | Emergency (ER) | payer OTHER ==
[~2017-03-19] VITALS: Ht 175.3 cm; Wt 80.6 kg
[~2017-03-19 11:42] MED LIST changes: -ONDA4TAB10 SL
--- NOTE | 2017-03-19 11:42 | EMERGENCY ROOM VISIT NOTE ---
History Report prepared by Meghan: Tran Guerrero Under the Supervision of: Henok MiO. First contact with patient: 11:42 Stated Complaint: HEROIN OVERDOSE History of Present Illness The patient is a 31 year old male who presents to the Emergency Room with complaints of an episode of a heroin overdose occurring [employer]. Per police, the patient was found in a pop[place]up camper [place] of a [place]. It is unclear if he is living there. The patient was found by family and he was unresponsive, purple, and not breathing. When police arrived on scene the family was bagging the patient with oxygen. Police administered two doses of 0.4mg Narcan sprays intranasally. He became very agitated and combative after Narcan. The patient admits to shooting up heroin today. He typically injects heroin. He states that he thinks it was cut with Fentanyl. EMS called for medical command en route but did not give the patient any Ativan, as he calmed down on his own. They deny any vomiting, although the patient has been coughing intermittently. 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 A total of 10 systems reviewed and were otherwise negative. Past Medical & Surgical Medical Problems: (1) Abdominal pain (2) attention deficit disorder (3) Diffuse abdominal pain (4) Intractable vomiting (5) Laceration (6) Nausea, vomiting and diarrhea (7) Nephrotic syndrome (8) Viral illness Surgical Problems: (1) S/P tonsillectomy Family History Diabetes mellitus Heart disease Kidney disease Stroke Social History Smoking Status: Current Every Day Smoker Drug Use: heroin Marital Status: in relationship Housing Status: lives with significant other Current/Historical Medications Scheduled Ondansetron Odt (Zofran Odt), 8 MG SL Q6H Allergies Coded Allergies: No Known Allergies (Unverified , 12/11/16) Physical Exam Vital Signs Date Time Temp Pulse Resp B/P (MAP) Pulse Ox O2 Delivery O2 Flow Rate FiO2 03/19/17 17:12 84 18 125/61 95 7/4/17 16:09 78 03/19/17 15:48 76 18 113/53 100 Room Air 03/19/17 14:30 87 18 125/67 100 Room Air 03/19/17 13:00 76 17 112/69 100 Room Air 03/19/17 12:32 98 17 126/80 96 Room Air 03/19/17 12:17 84 16 134/76 100 Room Air 03/19/17 12:07 85 03/19/17 12:07 100 Room Air 03/19/17 12:05 84 19 127/73 100 Room Air 03/19/17 11:46 37.0 89 19 150/90 100 Room Air Physical Exam GENERAL: somnolent but arousable, no distress, non-toxic EYE EXAM: normal conjunctiva, PERRL and EOM's grossly intact OROPHARYNX: no exudate, no erythema, lips, buccal mucosa, and tongue normal and mucous membranes are dry NECK: supple, no nuchal rigidity, no adenopathy, non-tender LUNGS: Decreased breath sounds. No wheezing, rhonchi, or rales. Normal chest wall mechanics HEART: no murmurs, S1 normal and S2 normal ABDOMEN: abdomen soft, non-tender, normo-active bowel sounds, no masses, no rebound or guarding. BACK: Back is symmetrical on inspection and there is no deformity, no midline tenderness, no CVA tenderness. SKIN: Patient with multiple areas of excoriation, evidence of fresh injection sites in bilateral AC's. EXTREMITIES: Patient moving all extremities spontaneously, normal pulses, no lower extremity edema. NEURO EXAM: Limited by patient's level of intoxication. Medical Decision & Procedures ER Provider Diagnostic Interpretation: Radiology results have been interpreted by the radiologist and reviewed by me. SINGLE VIEW CHEST CLINICAL HISTORY: Cough. FINDINGS: 2 AP, portable, upright chest radiographs are compared to study dated 12/11/2016. The examination is degraded by portable technique and patient rotation. The cardiomediastinal silhouette is unremarkable. The lungs and pleural spaces are clear. No pneumothorax is seen. The bony thorax is grossly intact. Bilateral nipple piercings are noted. IMPRESSION: No acute cardiopulmonary abnormality. Electronically signed by: Aleksandr Marmolejo M.D. 03/19/2017 12:29 PM Dictated Date/Time: 03/19/2017 12:[address] SCAN OF THE BRAIN WITHOUT IV CONTRAST CLINICAL HISTORY: Seizure. Overdose. COMPARISON STUDY: CT of the brain dated 04/11/2016. TECHNIQUE: Unenhanced axial CT scan of the brain is performed from the vertex to the skull base. Automated dose control exposure was utilized. CT DOSE: 537.48 mGy.cm FINDINGS: Brain parenchyma: The brain parenchyma is normal in appearance. There is no hemorrhage, mass effect, or evidence of acute territorial ischemia by CT criteria. Whitley-white matter is preserved. No extra-axial fluid collection is seen. Ventricles, sulci, cisterns: Normal in configuration. Intracranial vasculature: The visualized intracranial vasculature at the skull base is normal in appearance. Calvarium: Unremarkable. Sinuses and mastoids: The visualized paranasal sinuses are clear. The mastoid air cells are well pneumatized. Orbits: The bony orbits are grossly intact. IMPRESSION: No acute intracranial abnormality. Electronically signed by: Aleksandr Marmolejo M.D. 03/19/2017 4:33 PM Dictated Date/Time: 03/19/2017 4:31 PM Laboratory Results 03/19/17 11:55 Red Blood Count 4.50, Mean Corpuscular Volume 88.2, Mean Corpuscular Hemoglobin 30.0, Mean Corpuscular Hemoglobin Concent 34.0, Mean Platelet Volume 11.3, Neutrophils (%) (Auto) 68.5, Lymphocytes (%) (Auto) 20.6, Monocytes (%) (Auto) 9.8, Eosinophils (%) (Auto) 0.9, Basophils (%) (Auto) 0.1, Neutrophils # (Auto) 4.67, Lymphocytes # (Auto) 1.41, Monocytes # (Auto) 0.67, Eosinophils # (Auto) 0.06, Basophils # (Auto) 0.01 03/19/17 11:55 Test 03/19/17 11:55 03/19/17 15:45 White Blood Count 6.83 K/uL (4.8-10.8) Red Blood Count 4.50 M/uL (4.7-6.1) Hemoglobin 13.5 g/dL (14.0-18.0) Hematocrit 39.7 % (42-52) Mean Corpuscular Volume 88.2 fL (80-100) Mean Corpuscular Hemoglobin 30.0 pg (25-34) Mean Corpuscular Hemoglobin Concent 34.0 g/dl (32-36) Platelet Count 134 K/uL (130-400) Mean Platelet Volume 11.3 fL (7.4-10.4) Neutrophils (%) (Auto) 68.5 % Lymphocytes (%) (Auto) 20.6 % Monocytes (%) (Auto) 9.8 % Eosinophils (%) (Auto) 0.9 % Basophils (%) (Auto) 0.1 % Neutrophils # (Auto) 4.67 K/uL (1.4-6.5) Lymphocytes # (Auto) 1.41 K/uL (1.2-3.4) Monocytes # (Auto) 0.67 K/uL (0.11-0.59) Eosinophils # (Auto) 0.06 K/uL (0-0.5) Basophils # (Auto) 0.01 K/uL (0-0.2) RDW Standard Deviation 43.7 fL (36.4-46.3) RDW Coefficient of Variation 13.5 % (11.5-14.5) Immature Granulocyte % (Auto) 0.1 % Immature Granulocyte # (Auto) 0.01 K/uL (0.00-0.02) Anion Gap 6.0 mmol/L (3-11) Est Creatinine Clear Calc Drug Dose 122.8 ml/min Estimated GFR () 133.6 Estimated GFR (Non- 115.3 BUN/Creatinine Ratio 9.2 (10-20) Calcium Level 8.4 mg/dl (8.5-10.1) Total Bilirubin 0.6 mg/dl (0.2-1) Aspartate Amino Transf (AST/SGOT) 84 U/L (15-37) Alanine Aminotransferase (ALT/SGPT) 177 U/L (12-78) Alkaline Phosphatase 78 U/L (45-117) Pro-B-Type Natriuretic Peptide 50 pg/ml (0-450) Total Protein 6.2 gm/dl (6.4-8.2) Albumin 3.4 gm/dl (3.4-5.0) Globulin 2.8 gm/dl (2.5-4.0) Albumin/Globulin Ratio 1.2 (0.9-2) Ethyl Alcohol mg/dL < 3.0 mg/dl (0-3) Urine Opiates Screen POS (NEG) Urine Methadone, Qualitative NEG (NEG) Urine Barbiturates NEG (NEG) Urine Phencyclidine (PCP) Level NEG (NEG) Ur Amphetamine/Methamphetamine NEG (NEG) MDMA (Ecstasy) Screen NEG (NEG) Urine Benzodiazepines Screen NEG (NEG) Urine Cocaine Metabolite NEG (NEG) Urine Marijuana (THC) NEG (NEG) Laboratory results per my review. Medications Administered Medications (Trade) Dose Ordered Sig/Oma Route Start Time Stop Time Status Last Admin Dose Admin Clonidine HCl ([id number] 0.1mg/24hr Patch) 1 patch NOW STAT TD 03/19/17 16:52 03/19/17 16:53 DC 03/19/17 17:10 1 PATCH ECG Indication: toxicologic Rate (beats per minute): 85 Rhythm: normal sinus Findings: no acute ischemic change, no ectopy, other (normal axis, normal intervals) ED Course 1142: The patient was evaluated in room A1. A complete history and physical exam was performed. Prior to the patient's arrival in the ED I took medical command. 1159: I reevaluated the patient. His O2 saturation is still good. He is arousable but somnolent. 1228: I updated the patient. His vital signs are stable and he is not hypoxic. 1541: Upon reevaluation the patient still wakes up easily. I spoke with his girlfriend who is now at the bedside. She describes some seizure-like activity occurring with today's episode. She confirms the rest of the story that was previously obtained. 1644: I reassessed the patient at this time. He is feeling better and resting comfortably. Patient states that he has been clean for 8 months and is expressing an interest in returning to rehab. I discussed the results and treatment plan with the patient. I answered all pertaining questions that he had. He expressed understanding and verbalized agreement. The patient will be discharged home. 1652: Clonidine HCl 1 patch TD Medical Decision Differential diagnosis: Etiologies such as toxicologic, infection, hypoglycemia, electrolyte abnormalities, cardiac sources, intracerebral event, neurologic, as well as others were entertained. Medication Reconciliation: I attest that I have personally reviewed the patient' s current medication list. Blood pressure screening: Patient was found to have normal blood pressure on screening and does not require follow-up. Pt monitored here for several hours as a precaution given unresponsive episode described by police/ems/GF. Pt with hx drug abuse. Pt with no evidence of aspiration or pulmonary edema. No evolution of cough, hypoxia, difficulty breathing during observation time here. Pt awoke and was appropriate. no evidence of seizures. No evidence of other organ failure. Pt with a normal and nonfocal neuro exam at bedside upon waking up, and no additional evidence of hypoxic injury. Discussed with pt candidly at bedside risks involving his behavior and the event today, discussed possible complications from the event today, sx to watch/return for, f/u and rehab, he verbalized understanding of all this and was agreeable with plan. Pt ambulated with a steady and was tolerating po prior to dc. Impression Primary Impression: Overdose Additional Impression: Heroin abuse Scribe Attestation The scribe's documentation has been prepared under my direction and personally reviewed by me in its entirety. I confirm that the note above accurately reflects all work, treatment, procedures, and medical decision making performed by me. Departure Information Dispostion Home / Self-Care Prescriptions Ondansetron Odt (ZOFRAN ODT) 8 Mg Tab 8 MG SL Q6H for Nausea, #30 TAB Prov: Mi Wolf, DO 03/19/17 Referrals No Doctor, Assigned Forms HOME CARE DOCUMENTATION FORM, IMPORTANT VISIT INFORMATION, WORK / SCHOOL INSTRUCTIONS Patient Instructions My [facility] Additional Instructions Please do not use illegal drugs. Use of illegal drugs can result in long-term health complications, incarceration, and even . If you develop any trouble breathing, cough, fevers, chest pain, vomiting, headaches, dizziness, or any other new or concerning symptoms, please return the emergency room. Problem Qualifiers Primary Impression: Overdose Encounter type: initial encounter Injury intent: accidental or unintentional Qualified Codes: T50.901A - Poisoning by unspecified drugs, medicaments and biological substances, accidental (unintentional), initial encounter
[2017-03-19 11:46] VITALS: TEMP 37; Ht 175.3 cm; Wt 80.6 kg
[2017-03-19 12:07] VITALS: O2SAT 100
[2017-03-19 12:17] LABS: BASO % 0.1 %; BASO ABS # 0.01 K/uL (0-0.2); COMPLETE YES; EOS % 0.9 %; HEMATOCRIT 39.7 % (42-52); IG% 0.1 %; LYMPH % 20.6 %; LYMPH ABS # 1.41 K/uL (1.2-3.4); MEAN CELL VOLUME 88.2 fL (80-100); MEAN PLATELET VOLUME 11.3 fL (7.4-10.4); MONO % 9.8 %; NEUT % 68.5 %; PLATELET COUNT 134 K/uL (130-400); WHITE BLOOD COUNT 6.83 K/uL (4.8-10.8)
--- NOTE | 2017-03-19 12:30 | DIAGNOSTIC IMAGING REPORT ---
SINGLE VIEW CHEST CLINICAL HISTORY: Cough. FINDINGS: 2 AP, portable, upright chest radiographs are compared to study dated 12/11/2016. The examination is degraded by portable technique and patient rotation. The cardiomediastinal silhouette is unremarkable. The lungs and pleural spaces are clear. No pneumothorax is seen. The bony thorax is grossly intact. Bilateral nipple piercings are noted. IMPRESSION: No acute cardiopulmonary abnormality. Electronically signed by: Aleksandr Marmolejo M.D. 03/19/2017 12:29 PM Dictated Date/Time: 03/19/2017 12:27 PM
[2017-03-19 12:36] LABS: BUN/CREATININE RATIO 9.2 (10-20); CALCIUM 8.4 mg/dl (8.5-10.1); CREATININE 0.88 mg/dl (0.60-1.40); POTASSIUM 3.5 mmol/L (3.5-5.1)
[2017-03-19 12:41] LABS: ALB/GLOB RATIO 1.2 (0.9-2)
--- NOTE | 2017-03-19 16:35 | DIAGNOSTIC IMAGING REPORT ---
CT SCAN OF THE BRAIN WITHOUT IV CONTRAST CLINICAL HISTORY: Seizure. Overdose. COMPARISON STUDY: CT of the brain dated 04/11/2016. TECHNIQUE: Unenhanced axial CT scan of the brain is performed from the vertex to the skull base. Automated dose control exposure was utilized. CT DOSE: 537.48 mGy.cm FINDINGS: Brain parenchyma: The brain parenchyma is normal in appearance. There is no hemorrhage, mass effect, or evidence of acute territorial ischemia by CT criteria. Whitley-white matter is preserved. No extra-axial fluid collection is seen. Ventricles, sulci, cisterns: Normal in configuration. Intracranial vasculature: The visualized intracranial vasculature at the skull base is normal in appearance. Calvarium: Unremarkable. Sinuses and mastoids: The visualized paranasal sinuses are clear. The mastoid air cells are well pneumatized. Orbits: The bony orbits are grossly intact. IMPRESSION: No acute intracranial abnormality. Electronically signed by: Aleksandr Marmolejo M.D. 03/19/2017 4:33 PM Dictated Date/Time: 03/19/2017 4:31 PM
[2017-03-19] MEDS ORDERED: CLONIDINE HCL 0.1 MG/24 HR TRANSDERM SYS TD STA (16:52)
[2017-03-19] MEDS ORDERED: ONDA8TAB13 SL (16:53)
[2017-03-19 17:12] VITALS: BP 125/61; PULSE 84; O2SAT 95
[2017-03-19 17:24] LABS: BENZODIAZEPINE, URINE NEG (NEG); COCAINE,URINE NEG (NEG); PHENCYCLIDINE, URINE NEG (NEG)
[2017-03-22 13:55] LABS: COD UR NEGATIVE NG/ML (CUTOFF=50); HYDROCOD UR NEGATIVE NG/ML (CUTOFF=50); HYDROMOR UR NEGATIVE NG/ML (CUTOFF=50); MORPHINE UR 383 NG/ML (CUTOFF=50); NORHYDROCODONE CONF UR NEGATIVE NG/ML (CUTOFF=50); OXYMORPH UR NEGATIVE NG/ML (CUTOFF=50)
== END 2017-03-19 17:14 | disposition home or self-care (01) ==
LOC: EDBD 11:42 → C.ED 11:43 → C.EDA 17:14
DX: T40.1X1A Poisoning by heroin, accidental (unintentional), initial encounter (principal); F11.10 Opioid abuse, uncomplicated; F17.200 Nicotine dependence, unspecified, uncomplicated; Z90.89 Acquired absence of other organs; Z83.3 Family history of diabetes mellitus; Z82.3 Family history of stroke

== ENCOUNTER → 2017-08-05 | Outpatient (CLI) | payer OTHER ==
[2017-08-05 17:45] LABS: BASO % 0.1 %; BASO ABS # 0.01 K/uL (0-0.2); COMPLETE YES; EOS % 0.5 %; HEMATOCRIT 39.2 % (42-52); IG% 0.3 %; LYMPH ABS # 0.88 K/uL (1.2-3.4); MEAN CELL VOLUME 86.7 fL (80-100); MEAN CORPUSCULAR HEMOGLOBIN 29.9 pg (25-34); MEAN CORPUSCULAR HGB CONC 34.4 g/dl (32-36); MONO % 11.9 %; NEUT % 77.2 %; PLATELET COUNT 173 K/uL (130-400); RED BLOOD COUNT 4.52 M/uL (4.7-6.1); WHITE BLOOD COUNT 8.76 K/uL (4.8-10.8)
[2017-08-05 18:13] LABS: ALT/SGPT 65 U/L (12-78); AST/SGOT 32 U/L (15-37); BLOOD UREA NITROGEN 12 mg/dl (7-18); BUN/CREATININE RATIO 17.6 (10-20); CALCIUM 8.3 mg/dl (8.5-10.1); CARBON DIOXIDE 30 mmol/L (21-32); CHLORIDE 102 mmol/L (98-107); GLUCOSE 119 mg/dl (70-99); POTASSIUM 3.9 mmol/L (3.5-5.1); SODIUM 139 mmol/L (136-145)
[2017-08-05 18:22] LABS: ALKALINE PHOSPHATASE 66 U/L (45-117); THYROID STIMULATING HORMONE 0.596 uIu/ml (0.300-4.500)
== END | disposition home or self-care (01) ==
LOC: C.CPL 16:58
PROVIDERS: ATTEND Physician Assistant
DX: Z79.899 Other long term (current) drug therapy (principal)

== ENCOUNTER 2017-10-04 11:48 | Emergency (ER) | payer OTHER ==
[~2017-10-04] VITALS: Ht 180.3 cm; Wt 70.2 kg
[2017-10-04 12:04] VITALS: Ht 180.3 cm; Wt 70.2 kg
[2017-10-04] MEDS ORDERED: TRAMADOL HCL 50 MG TAB PO STA (12:23)
[2017-10-04] MEDS ORDERED: PENICILLIN V POTASSIUM 250 MG TAB PO STA (12:23)
[2017-10-04] MEDS ORDERED: TRAM-453 PO (12:29)
[2017-10-04] MEDS ORDERED: PENI-82 PO (12:29)
[2017-10-04] MEDS ORDERED: PRAZ2CAP3 PO (12:33)
[2017-10-04] MEDS ORDERED: TRAZ100T29 PO (12:33)
[2017-10-04] MEDS ORDERED: PARO10TA PO (12:33)
[2017-10-04] MEDS ORDERED: PARO40TA3 PO (12:33)
[2017-10-04] MEDS ORDERED: ROPI0.25 PO (12:33)
--- NOTE | 2017-10-04 12:33 | EMERGENCY ROOM VISIT NOTE ---
ED Visit Note First contact with patient: 12:14 CHIEF COMPLAINT: Toothache HISTORY OF PRESENT ILLNESS: This 32-year-old male patient presented to the emergency department with a female who provides the entire history, as the patient is lying in the bed covered in a blanket. The female in the patient's room states the patient has been experiencing a progressive toothache for past 2 -3 weeks. The patient believes it is coming from metal implants which have broken off in the mouth. The pain is now steady and severe and radiates to the face. The patient did see a dentist and was referred to an oral surgeon, and does have an appointment scheduled for next week with the oral surgeon. The patient states the dentist did not start him on any pain medication or antibiotics. They rate their pain a 10/10 and the ibuprofen and Tylenol they have been taking has not relieved the pain. Denies facial swelling or fever. The patient denies any discharge from the mouth. The patient also reports cough, congestion, fever of up to 102 intermittently for the past 1 week. He states he has been experiencing body aches, nausea, and vomiting. He denies any sore throat , cough, otalgia. The patient did not receive influenza vaccination. He has been taking no OTC cough or cold medication. He denies any hemoptysis, abdominal pain, diarrhea, constipation, or other concerning symptoms. REVIEW OF SYSTEMS: A 10 system review of systems was completed with positives and pertinent negatives listed in the HPI. ALLERGIES: None MEDICATIONS: Paxil, trazodone, Requip, prazosin, methylphenidate PMH: Restless leg syndrome, nightmares, depression, sleep disturbances SOCIAL HISTORY: The patient lives locally with family. He denies drug, alcohol use. He admits to smoking at least half a pack per day. PHYSICAL EXAM: Vitals are noted on the nurse's note and reviewed by myself. Vital signs stable. Temperature 36.9C orally. GENERAL: This is a 32 year old white male, in no acute distress, nondiaphoretic, well-developed well- nourished. Mouth: Dentition is extremely poor. Multiple teeth are very carious and the gum is swollen and tender around them, without any discharge or signs of an abscess. There is metal broken off from the #26 tooth. The remainder of the pharynx and tonsils are without erythema, edema, or exudate. The airway is patent. There is no facial swelling, cervical or submandibular lymphadenopathy. The patient appears uncomfortable and in pain. The patient has overall extremely poor dental hygiene. EARS: External auditory canals clear , tympanic membranes pearly thomas without erythema or effusion bilaterally. NOSE : Patent, turbinates without inflammation or erythema. HEART: Regular rate and rhythm, no murmurs, gallops, or rubs noted on auscultation. LUNGS: Clear to auscultation bilaterally in all lung garza. No wheezes, rhonchi, or rales noted. ED COURSE: The patient was seen and evaluated as above. He has extremely poor dentition. There is no obvious abscess or erythema, however the patient did fracture a tooth, with the metal implant exposed. He will be started on antibiotics and given a very short course of pain medication. He was encouraged on proper outpatient management, and advised to follow-up with oral surgeon next week, as the emergency department is incapable of managing chronic dental pain. I do suspect that the patient is also experiencing an influenza- like illness which could be complicating his dental infection. I discussed with him proper outpatient management for viral illness and encouraged him to treat his symptoms to help him to feel better. Discharge instructions were reviewed, and all questions were answered to the patient and his mother's satisfaction. The patient was discharged home in good condition. I attest that I have personally reviewed the patient's current medication list. Patient was found to have normal blood pressure on screening and does not require follow-up. DIAGNOSIS: Odontalgia, influenza-like illness Problem List Medical Problems: (1) Abdominal pain Status: Resolved (2) attention deficit disorder Status: Chronic (3) Diffuse abdominal pain Status: Resolved (4) Intractable vomiting Status: Resolved (5) Laceration Status: Resolved (6) Nausea, vomiting and diarrhea Status: Resolved (7) Nephrotic syndrome Status: Chronic (8) Viral illness Status: Resolved Surgical Problems: (1) S/P tonsillectomy Status: Resolved Current/Historical Medications Scheduled Paroxetine Hcl (Paxil), 10 MG PO DAILY Paroxetine Hcl (Paxil), 40 MG PO DAILY Penicillin V Potassium (Veetids), 500 MG PO QID Prazosin Hcl (Prazosin), 2 MG PO DAILY Ropinirole (Requip), Unknown Dose PO DAILY Tramadol Hcl (Ultram), 50 MG PO Q4-6H Trazodone Hcl (Trazodone), 200 MG PO DAILY Allergies Coded Allergies: No Known Allergies (Unverified , 12/11/16) Vital Signs Date Time Temp Pulse Resp B/P (MAP) Pulse Ox O2 Delivery O2 Flow Rate FiO2 10/04/17 13:04 36.9 66 18 107/59 99 10/04/17 13:03 66 18 107/59 99 Room Air 10/04/17 12:04 36.9 78 18 125/71 100 Room Air Medications Administered Medications (Trade) Dose Ordered Sig/Oma Route Start Time Stop Time Status Last Admin Dose Admin Tramadol HCl (Ultram Tab) 50 mg NOW STAT PO 10/04/17 12:23 10/04/17 12:24 DC 10/04/17 12:49 50 MG Penicillin V Potassium (Veetids Tab) 500 mg ONE STAT PO 10/04/17 12:23 10/04/17 12:24 DC 10/04/17 12:50 500 MG Departure Information Impression Primary Impression: Odontalgia Additional Impression: Influenza-like symptoms Dispostion Home / Self-Care Condition GOOD Prescriptions Tramadol Hcl (ULTRAM) 50 Mg Tab 50 MG PO Q4-6H, #6 TAB PRN PAIN Prov: Gladis Bazzi PA-C 10/04/17 Penicillin V Potassium (Veetids) 500 Mg Tab 500 MG PO QID for 10 Days, #40 TAB Prov: Gladis Bazzi PA-C 10/04/17 Referrals No Doctor, Assigned (PCP) Patient Instructions ED Abscess Dental, ED Flu, [facility] Additional Instructions You have been treated in the Emergency Department for Dental Pain. You have received pain medicine in the emergency department which impairs your ability to operate a vehicle. It is illegal for you to drive after receiving these medicines. You may wish to use dental wax over the teeth which are bothersome. Please change the wax frequently to prevent worsening infection. You have been prescribed Tramadol to be used for pain control. This is a narcotic medication. You cannot drive or consume alcohol while on this medicine. This medicine should only be used for pain that cannot be controlled with kxul-gtl-bywqplw pain medicines. You were prescribed PenVK to be taken as directed. This is an antibiotic. All antibiotics have the potential to cause diarrhea. Stop this medication and contact a medical provider if you were to develop any significant adverse side effects including: wheezing, shortness of breath, passing out, vomiting, or a diffuse rash. Always take antibiotics as directed and COMPLETE the ENTIRE course regardless of the improvement of your symptoms. For pain control, you can use the following upoh-wvl-zgpefgh medicines (if >12 yo): Ibuprofen(Motrin, Advil) may be used for fever or pain. Use 600mg every six hours as needed. Take with food. Avoid using more than 2400mg in a 24 hour period. Do not use 2400mg per day for more than three consecutive days without physician direction. Prolonged inappropriate use can lead to stomach upset or ulcers. (AND/OR) Acetaminophen(Tylenol) may be used for fever or pain. Use 1000mg every six hours as needed. Avoid using more than 3000mg in a 24 hour period. *Alternate these medications every 3-4 hours for increased pain/fever control. Refrain from smoking cigarettes or using chewing tobacco until you have been evaluated by your dentist. Keeping beverages lukewarm and consuming soft foods can decrease your pain. Warm compresses over the affected area may offer some relief. As discussed, I also suspect influenza/influenza-like illness based on your symptoms of fever, fatigue, body aches, cough, nausea. This is viral. As discussed, antibiotics will not treat viral illness, so despite being started on antibiotics, you will likely be sick for 10-14 days. For your sore throat, you may use a 1:1 mixture of liquid Benadryl and liquid Maalox. Gargle and spit this mixture. It will help to soothe the throat and provide some relief. Drink warm tea with honey and lemon, as this will also help to soothe the throat. Gargle with salt water frequently. As discussed, you should take OTC Mucinex and/or Sudafed for your symptoms. Please do not exceed the recommended daily dosages. Do not exceed recommended ibuprofen or acetaminophen dosages. To avoid this, ensure to take cold/flu medication which does not have these ingredients. For congestion, you may use Flonase OTC. You may want to consider zinc, echinacea, and vitamin C to help boost your immunity. Please get plenty of rest and drink plenty of fluids. You MUST seek evaluation of your dental pain by a dentist following your visit to the Emergency Department. The Emergency Department is not capable of treating dental issues long-term. You should call your dentist as soon as possible to make an appointment for evaluation of your dental pain. Return to the emergency department if you develop the following symptoms despite treatment course outlined above: fever, intractable pain, increased redness, swelling, or purulent discharge, coughing up blood, difficulty breathing, chest pain, or other concerning symptoms. Problem Qualifiers
[2017-10-04 13:04] VITALS: BP 107/59; PULSE 66; TEMP 36.9; O2SAT 99
== END 2017-10-04 13:06 | disposition home or self-care (01) ==
LOC: C.EDB 11:49 → C.EDD 13:06
DX: K08.89 Other specified disorders of teeth and supporting structures (principal); R68.89 Other general symptoms and signs; G25.81 Restless legs syndrome; F32.9 Major depressive disorder, single episode, unspecified; G47.9 Sleep disorder, unspecified; F51.5 Nightmare disorder; F98.8 Other specified behavioral and emotional disorders with onset usually occurring in childhood and adolescence; N04.9 Nephrotic syndrome with unspecified morphologic changes; F17.210 Nicotine dependence, cigarettes, uncomplicated; Z79.899 Other long term (current) drug therapy

== ENCOUNTER 2017-10-08 00:12 | Emergency (ER) | payer OTHER ==
[~2017-10-08] VITALS: Ht 180.3 cm; Wt 69.9 kg
[~2017-10-08 00:12] MED LIST changes: +PARO10TA PO; -PARO30TA5 PO; +PARO40TA3 PO; +PENI-82 PO; +PRAZ2CAP3 PO; -QUET1TAB10 PO; +ROPI0.25 PO; +TRAM-453 PO; +TRAZ100T29 PO; -[UNRECOGNIZED DRUG - CODE] PO
[2017-10-08 00:16] VITALS: TEMP 36.9; Ht 180.3 cm; Wt 69.9 kg
[2017-10-08] MEDS ORDERED: LORAZEPAM 2 MG/ML 1 ML VIAL IV STA (00:34)
[2017-10-08] MEDS ORDERED: MULTI-VITAMIN INFUSION INJ 10 ML, THIAMINE HCL INJ 100 MG, FoLIC ACID INJ 1 MG in SODIU... IV ONE (00:45)
[2017-10-08] MEDS ORDERED: DIPHTHERIA/TETANUS/PERTUSSIS 0.5 ML SYR/VIAL IM. ONE (00:45)
[2017-10-08 01:11] LABS: BASO % 0.3 %; BASO ABS # 0.02 K/uL (0-0.2); EOS % 0.6 %; EOS ABS # 0.04 K/uL (0-0.5); HEMATOCRIT 38.8 % (42-52); HEMOGLOBIN 13.9 g/dL (14.0-18.0); IG# 0.01 K/uL (0.00-0.02); LYMPH % 23.9 %; LYMPH ABS # 1.61 K/uL (1.2-3.4); MEAN CELL VOLUME 84.2 fL (80-100); MEAN CORPUSCULAR HEMOGLOBIN 30.2 pg (25-34); MEAN CORPUSCULAR HGB CONC 35.8 g/dl (32-36); MEAN PLATELET VOLUME 10.9 fL (7.4-10.4); MONO % 10.4 %; NEUT % 64.7 %; NEUT ABS # 4.37 K/uL (1.4-6.5); PLATELET COUNT 185 K/uL (130-400); RED CELL DISTRIBUTION WIDTH CV 12.7 % (11.5-14.5); RED CELL DISTRIBUTION WIDTH SD 38.8 fL (36.4-46.3); WHITE BLOOD COUNT 6.75 K/uL (4.8-10.8)
[2017-10-08 01:28] LABS: ALBUMIN 3.9 gm/dl (3.4-5.0); CALCIUM 8.7 mg/dl (8.5-10.1); CREATININE 0.67 mg/dl (0.60-1.40)
[2017-10-08 01:31] LABS: TOTAL PROTEIN 7.4 gm/dl (6.4-8.2)
--- NOTE | 2017-10-08 02:14 | EMERGENCY ROOM VISIT NOTE ---
History Report prepared by Meghan: Kb Portillo Under the Supervision of: Dr. Bassam Patel M.D. First contact with patient: 00:24 Chief Complaint: DETOX REQUEST Stated Complaint: DETOX FOR TREATMENT History of Present Illness The patient is a 32 year old male who presents to the Emergency Room for heroin detox. He most recently used opiates earlier today. Per significant other, the patient has been using a lot of Fentanyl recently. She states that the patient does not have any identification paperwork currently, so he cannot get into a rehab center until he obtains the paperwork. The patient states that he was unable to get a ride to the ED until now. He also complains of chills, and vomiting. He states that he has not been eating much recently. The patient denies recent alcohol use. He denies any leg swelling, shortness of breath, or recorded fevers. Source of History: patient, spouse/significant other Quality: other (heroin detox request) Associated Symptoms: + chills, + vomiting, No fevers (recorded), No SOB Note: The patient denies leg swelling. Review of Systems See HPI for pertinent positives & negatives. A total of 10 systems reviewed and were otherwise negative. Past Medical & Surgical Medical Problems: (1) Abdominal pain (2) attention deficit disorder (3) Diffuse abdominal pain (4) Intractable vomiting (5) Laceration (6) Nausea, vomiting and diarrhea (7) Nephrotic syndrome (8) Viral illness Surgical Problems: (1) S/P tonsillectomy Family History Diabetes mellitus Heart disease Kidney disease Stroke Social History Smoking Status: Current Every Day Smoker Alcohol Use: none Drug Use: heroin Marital Status: in relationship Housing Status: lives with significant other Occupation Status: unemployed, disabled Current/Historical Medications Scheduled Paroxetine Hcl (Paxil), 10 MG PO DAILY Paroxetine Hcl (Paxil), 40 MG PO DAILY Prazosin Hcl (Prazosin), 2 MG PO HS Ropinirole (Requip), 1 TAB PO HS Trazodone Hcl (Trazodone), 200 MG PO HS Allergies Coded Allergies: No Known Allergies (Unverified , 10/08/17) Physical Exam Vital Signs Date Time Temp Pulse Resp B/P (MAP) Pulse Ox O2 Delivery O2 Flow Rate FiO2 10/08/17 03:58 64 14 115/56 97 10/08/17 02:50 56 10/08/17 02:45 63 16 109/60 95 Room Air 10/08/17 01:15 73 18 139/81 99 Room Air 10/08/17 00:16 36.9 72 18 144/75 99 Room Air Physical Exam GENERAL: Patient is uncomfortable appearing and in no acute distress. Tremors. HEENT: No acute trauma, normocephalic atraumatic, mucous membranes moist, no nasal congestion, no scleral icterus. NECK: No stridor, no adenopathy, no meningismus, trachea is midline. LUNGS: No dyspnea. Clear to auscultation and equal bilaterally. No wheeze, no rhonchi. HEART: Regular rate and rhythm. No murmurs, rubs, gallops appreciated. ABDOMEN: Soft, nontender, bowel sounds positive, no masses appreciated, no peritonitis. BACK: No midline tenderness, no CVA tenderness EXTREMITIES: Normal motion all extremities. Extensive track laureano over bilateral arms. Right AC worse than left. No abscess or foreign bodies appreciated. NEUROLOGIC: Alert and oriented, no acute motor or sensory deficits, no focal weakness, cranial nerves grossly intact. SKIN: No rash, no jaundice, no diaphoresis. Medical Decision & Procedures Laboratory Results 10/08/17 00:51 Red Blood Count 4.61, Mean Corpuscular Volume 84.2, Mean Corpuscular Hemoglobin 30.2, Mean Corpuscular Hemoglobin Concent 35.8, Mean Platelet Volume 10.9, Neutrophils (%) (Auto) 64.7, Lymphocytes (%) (Auto) 23.9, Monocytes (%) (Auto) 10.4, Eosinophils (%) (Auto) 0.6, Basophils (%) (Auto) 0.3, Neutrophils # (Auto ) 4.37, Lymphocytes # (Auto) 1.61, Monocytes # (Auto) 0.70, Eosinophils # (Auto ) 0.04, Basophils # (Auto) 0.02 10/08/17 00:51 Test 10/08/17 00:51 White Blood Count 6.75 K/uL (4.8-10.8) Red Blood Count 4.61 M/uL (4.7-6.1) Hemoglobin 13.9 g/dL (14.0-18.0) Hematocrit 38.8 % (42-52) Mean Corpuscular Volume 84.2 fL (80-100) Mean Corpuscular Hemoglobin 30.2 pg (25-34) Mean Corpuscular Hemoglobin Concent 35.8 g/dl (32-36) Platelet Count 185 K/uL (130-400) Mean Platelet Volume 10.9 fL (7.4-10.4) Neutrophils (%) (Auto) 64.7 % Lymphocytes (%) (Auto) 23.9 % Monocytes (%) (Auto) 10.4 % Eosinophils (%) (Auto) 0.6 % Basophils (%) (Auto) 0.3 % Neutrophils # (Auto) 4.37 K/uL (1.4-6.5) Lymphocytes # (Auto) 1.61 K/uL (1.2-3.4) Monocytes # (Auto) 0.70 K/uL (0.11-0.59) Eosinophils # (Auto) 0.04 K/uL (0-0.5) Basophils # (Auto) 0.02 K/uL (0-0.2) RDW Standard Deviation 38.8 fL (36.4-46.3) RDW Coefficient of Variation 12.7 % (11.5-14.5) Immature Granulocyte % (Auto) 0.1 % Immature Granulocyte # (Auto) 0.01 K/uL (0.00-0.02) Anion Gap 4.0 mmol/L (3-11) Est Creatinine Clear Calc Drug Dose 157.9 ml/min Estimated GFR () 148.4 Estimated GFR (Non- 128.0 BUN/Creatinine Ratio 19.6 (10-20) Calcium Level 8.7 mg/dl (8.5-10.1) Total Bilirubin 0.3 mg/dl (0.2-1) Aspartate Amino Transf (AST/SGOT) 18 U/L (15-37) Alanine Aminotransferase (ALT/SGPT) 36 U/L (12-78) Alkaline Phosphatase 69 U/L (45-117) Total Protein 7.4 gm/dl (6.4-8.2) Albumin 3.9 gm/dl (3.4-5.0) Globulin 3.5 gm/dl (2.5-4.0) Albumin/Globulin Ratio 1.1 (0.9-2) Laboratory results as reviewed by me. Medications Administered Medications (Trade) Dose Ordered Sig/Oma Route Start Time Stop Time Status Last Admin Dose Admin Diphtheria/ Pertussis/Tetanus Vacc (Adacel Inj) 0.5 ml ONCE ONCE IM. 10/08/17 00:45 10/08/17 00:46 DC 10/08/17 00:54 0.5 ML Multivitamins 10 ml/Thiamine HCl 100 mg/Folic Acid 1 mg/Sodium Chloride 1,011.2 ml @ 500 mls/ hr Q2H2M ONCE IV 10/08/17 00:45 10/08/17 02:46 DC 10/08/17 01:15 500 MLS/HR Lorazepam (Ativan Inj) 2 mg NOW STAT IV 10/08/17 00:34 10/08/17 00:36 DC 10/08/17 00:54 2 MG ED Course 0026: The patient was evaluated in room A4B. A complete history and physical exam was performed. 0034: Ordered Ativan Inj 2 mg IV. 0045: Ordered Multivitamins 10 mL/Thiamine HCl 100 mg/Folic Acid 1 mg/Sodium Chloride 1011.2 ml @ 500 mls/hr IV, Adacel Inj 0.5 mL IM. 0300: Reevaluated the patient. Discussed results and discharge instructions: he verbalized understanding and agreement. The patient is ready for discharge. Medical Decision 32 yr old male drug abuser who has been addict for 14 yrs arrives requesting admission to rehab facility. This is due to being told he needs his now destroyed ID paperwork to be admitted to a rehab facility. He is withdrawing from opioids by exam, despite having actually used earlier in day (suspect this may have actually been Fentanyl and not just heroin). He has multiple friends that have of OD, one recently, along with his own previous OD that are leading him to want rehab currently. He was given Banana Bag, IV Ativan, and allowed to rest/sleep for several hours. Tetanus update given as well as unknown when last and he is IV drug user. Labs look good. Comfortable. He was able to awaken and ambulate. I see no clear indication for admission at this time. He has no murmur that I can auscultate, no fevers, no sob, no hemorrhages. Many track laureano though no clear evidence of abscess and patient denies knowledge of FB. I discussed limitations of ER to do placement for this , nor can we just keep him in ED so that he doesn't use again. His significant other asked if I would prescribe further benzos, but given his already high chance of relapse and his addiction issues I do not feel it would be appropriate at this time... in fact I made sure he was awake, alert, oriented after we gave ativan here before he was discharged. I made it clear we are always available for emergency evaluations and treatment. Medication Reconcilliation Current Medication List: was personally reviewed by me Blood Pressure Screening Patient's blood pressure: Normal blood pressure Blood pressure disposition: Did not require urgent referral Impression Primary Impression: Opioid withdrawal Additional Impressions: Dehydration Malnutrition [id number] (DTP) vaccination Scribe Attestation The scribe's documentation has been prepared under my direction and personally reviewed by me in its entirety. I confirm that the note above accurately reflects all work, treatment, procedures, and medical decision making performed by me. Departure Information Dispostion Home / Self-Care Referrals No Doctor, Assigned (PCP) Patient Instructions Abuse Heroin Abuse and Addiction, My [facility] Additional Instructions We are always here to help. Keep well hydrated and avoid putting self in situations at risk of relapsing. If you feel you are at risk of harming yourself or others call 911 or return here. Problem Qualifiers
[2017-10-08 03:58] VITALS: BP 115/56; PULSE 64; O2SAT 97
== END 2017-10-08 04:12 | disposition home or self-care (01) ==
LOC: C.EDB 00:13 → C.EDA 04:12
DX: F11.23 Opioid dependence with withdrawal (principal); E86.0 Dehydration; E46 Unspecified protein-calorie malnutrition; Z23 Encounter for immunization; F17.200 Nicotine dependence, unspecified, uncomplicated

== ENCOUNTER 2018-04-12 20:14 | Emergency (ER) | payer OTHER ==
[~2018-04-12] VITALS: Ht 177.8 cm; Wt 83.4 kg
[~2018-04-12 20:14] MED LIST changes: +AMPH20TA2 PO; +CLON1TAB5 PO; +MIRT30TA3 PO; -PARO10TA PO; -PARO40TA3 PO; -PENI-82 PO; -PRAZ2CAP3 PO; -ROPI0.25 PO; -TRAM-453 PO; -TRAZ100T29 PO
[2018-04-12 20:15] VITALS: TEMP 36.7; Ht 177.8 cm; Wt 83.4 kg
[2018-04-12] MEDS ORDERED: KETOROLAC TROMETHAMINE 30 MG/ML VIAL IV STA (20:34)
[2018-04-12] MEDS ORDERED: DiphenhydrAMINE HCL 50 MG/ML VIAL IV STA (20:34)
[2018-04-12] MEDS ORDERED: SODIUM CHLORIDE 0.9% 1000ML 1,000 ML IV ONE (20:34)
[2018-04-12] MEDS ORDERED: PROCHLORPERAZINE 5 MG/ML 2 ML VIAL IV STA (20:34)
--- NOTE | 2018-04-12 20:43 | EMERGENCY ROOM VISIT NOTE ---
History Report prepared by Meghan: Klaus Epperson Under the Supervision of: Dr. Agustin Kimbrough M.D. First contact with patient: 20:29 Chief Complaint: ILLNESS Stated Complaint: ILLNESS, NAUSEA, NECK PAIN, MIGRAINE History of Present Illness The patient is a 32 year old male who presents to the Emergency Room with complaints of worsening generalized body cramps that began yesterday. Patient adds he has left neck pain, headaches, dizziness, chest pain, SOB, nausea, coughing, and vomiting. Patient states the neck pain is worsened with pressure and denies any recent trauma to the area. He states his headache is located at his temples. Patient states food comes back up when he tries to eat. Past medical history includes liver issues, alcohol abuse, drug abuse, anxiety, panic attacks, and migraines. He states his symptoms feel similar to his history of anxiety/panic attacks. Patients states he had a drug overdose last year. He adds he has been clean for 5 months. Denies again drug or alcohol use. He denies being around anyone else that is sick. Patient denies taking any medications for his symptoms. Patient denies abdominal pain. Source of History: patient Onset: Yesterday Position: head, neck, chest Quality: cramping Timing: worsening Modifying Factors (Relieving): other (None) Associated Symptoms: + headache, + cough, + neck pain, + chest pain, + SOB, + nausea, + vomiting, No abdominal pain Note: Positive dizziness. Review of Systems See HPI for pertinent positives and negatives. A total of ten systems were reviewed and were otherwise negative. Past Medical & Surgical Medical Problems: (1) Abdominal pain (2) attention deficit disorder (3) Dehydration (4) Dehydration (5) Dental caries (6) Diffuse abdominal pain (7) Wrrhmykdac-amzfwpw-kyvavugqe (DTP) vaccination (8) Heroin abuse (9) Influenza-like symptoms (10) Intractable vomiting (11) Laceration (12) Malnutrition (13) Malnutrition (14) Nausea & vomiting (15) Nausea, vomiting and diarrhea (16) Nephrotic syndrome (17) Odontalgia (18) Opioid withdrawal (19) Opioid withdrawal (20) Overdose (21) Pain, dental (22) Probable Reaction to Methadone (23) Right forearm pain (24) Severe headache (25) Viral illness Surgical Problems: (1) S/P tonsillectomy (2) Status post tooth extraction Family History Diabetes mellitus Heart disease Kidney disease Stroke Social History Smoking Status: Current Every Day Smoker Alcohol Use: none Drug Use: heroin Marital Status: in relationship Housing Status: lives with significant other Occupation Status: unemployed, disabled Current/Historical Medications Scheduled Amphetamine-Dextroamphetamine 20MG (Adderall Xr 20MG), 20 MG PO TID Mirtazapine (Remeron), 30 MG PO HS Paroxetine (Paxil), Unknown Dose PO DAILY Allergies Coded Allergies: Acetaminophen (Verified Adverse Reaction, Unknown, Liver issues, 02/28/18) Physical Exam Vital Signs Date Time Temp Pulse Resp B/P (MAP) Pulse Ox O2 Delivery O2 Flow Rate FiO2 04/12/18 22:15 71 18 127/67 97 Room Air 04/12/18 20:22 88 04/12/18 20:15 36.7 71 18 157/84 99 Room Air Physical Exam GENERAL: Awake, alert, w in mild/moderate distress/anxious HENT: Normocephalic, atraumatic. Oropharynx unremarkable. EYES: Normal conjunctiva. Sclera non-icteric. NECK: No significant cervical or neck tenderness. Supple. No nuchal rigidity. RESPIRATORY: Clear to auscultation. No wheezes. Normal respiratory effort. CARDIAC: Normal rate. Normal rhythm. Extremities warm and well perfused. GI: Soft, non-distended. No tenderness to palpation. No rebound or guarding. No masses. RECTAL: Deferred. MUSCULOSKELETAL: Atraumatic. Chest examination reveals no tenderness. There is no CVA tenderness to palpation. LOWER EXTREMITIES: Calves are equal size bilaterally and non-tender. No edema NEURO: Normal facial symmetry. Normal sensorium. No sensory or motor deficits noted. SKIN: Warm and dry. No rash or jaundice noted. Medical Decision & Procedures ER Provider Diagnostic Interpretation: Radiology results as stated below per my review and radiologist interpretation: CHEST ONE VIEW PORTABLE CLINICAL HISTORY: Shortness of breath COMPARISON STUDY: 03/19/2017 FINDINGS: The cardiac and mediastinal contours are normal. There is no evidence of focal pulmonary consolidation. There is no evidence of failure. No pleural effusions are visualized.[ IMPRESSION: No active disease in the chest. Electronically signed by: Schuyler Fajardo M.D. 04/12/2018 9:27 PM Laboratory Results 04/12/18 20:51 Red Blood Count 5.47, Mean Corpuscular Volume 85.7, Mean Corpuscular Hemoglobin 30.9, Mean Corpuscular Hemoglobin Concent 36.0, Mean Platelet Volume 11.4, Neutrophils (%) (Auto) 78.4, Lymphocytes (%) (Auto) 12.5, Monocytes (%) (Auto) 8.2, Eosinophils (%) (Auto) 0.3, Basophils (%) (Auto) 0.3, Neutrophils # (Auto) 9.33, Lymphocytes # (Auto) 1.49, Monocytes # (Auto) 0.97, Eosinophils # (Auto) 0.03, Basophils # (Auto) 0.03 04/12/18 20:51 Test 04/12/18 20:51 White Blood Count 11.88 K/uL (4.8-10.8) Red Blood Count 5.47 M/uL (4.7-6.1) Hemoglobin 16.9 g/dL (14.0-18.0) Hematocrit 46.9 % (42-52) Mean Corpuscular Volume 85.7 fL (80-100) Mean Corpuscular Hemoglobin 30.9 pg (25-34) Mean Corpuscular Hemoglobin Concent 36.0 g/dl (32-36) Platelet Count 201 K/uL (130-400) Mean Platelet Volume 11.4 fL (7.4-10.4) Neutrophils (%) (Auto) 78.4 % Lymphocytes (%) (Auto) 12.5 % Monocytes (%) (Auto) 8.2 % Eosinophils (%) (Auto) 0.3 % Basophils (%) (Auto) 0.3 % Neutrophils # (Auto) 9.33 K/uL (1.4-6.5) Lymphocytes # (Auto) 1.49 K/uL (1.2-3.4) Monocytes # (Auto) 0.97 K/uL (0.11-0.59) Eosinophils # (Auto) 0.03 K/uL (0-0.5) Basophils # (Auto) 0.03 K/uL (0-0.2) RDW Standard Deviation 40.6 fL (36.4-46.3) RDW Coefficient of Variation 12.9 % (11.5-14.5) Immature Granulocyte % (Auto) 0.3 % Immature Granulocyte # (Auto) 0.03 K/uL (0.00-0.02) Anion Gap 7.0 mmol/L (3-11) Est Creatinine Clear Calc Drug Dose 116.3 ml/min Estimated GFR () 123.1 Estimated GFR (Non- 106.2 BUN/Creatinine Ratio 15.5 (10-20) Calcium Level 8.8 mg/dl (8.5-10.1) Magnesium Level 1.7 mg/dl (1.8-2.4) Total Bilirubin 0.7 mg/dl (0.2-1) Direct Bilirubin 0.2 mg/dl (0-0.2) Aspartate Amino Transf (AST/SGOT) 21 U/L (15-37) Alanine Aminotransferase (ALT/SGPT) 42 U/L (12-78) Alkaline Phosphatase 80 U/L (45-117) Total Creatine Kinase 203 U/L (39-308) Troponin I < 0.015 ng/ml (0-0.045) Total Protein 7.9 gm/dl (6.4-8.2) Albumin 4.3 gm/dl (3.4-5.0) Thyroid Stimulating Hormone (TSH) 1.180 uIu/ml (0.300-4.500) Laboratory results reviewed by me Medications Administered Medications (Trade) Dose Ordered Sig/Oma Route Start Time Stop Time Status Last Admin Dose Admin Prochlorperazine Edisylate (Compazine Inj) 10 mg NOW STAT IV 04/12/18 20:34 04/12/18 20:37 DC 04/12/18 21:03 10 MG Ketorolac Tromethamine (Toradol Inj) 15 mg NOW STAT IV 04/12/18 20:34 04/12/18 20:37 DC 04/12/18 21:03 15 MG Diphenhydramine HCl (Benadryl Inj) 50 mg NOW STAT IV 04/12/18 20:34 04/12/18 20:37 DC 04/12/18 21:03 50 MG Sodium Chloride 1,000 ml @ 999 mls/hr Q1H1M ONCE IV 04/12/18 20:34 04/12/18 21:34 DC 04/12/18 21:02 999 MLS/HR Lorazepam (Ativan Tab) 1 mg NOW STAT PO 04/12/18 22:10 04/12/18 22:11 DC 7/28/18 22:17 1 MG ECG Per My Interpretation Indication: nausea Rate (beats per minute): 64 Rhythm: normal sinus Findings: other (Normal axis, normal intervals, no ST segment elevation) Comparison ECG Date: 08/05/17 Change: no significant change ED Course 2030: The patient was evaluated in room B9. A complete history and physical exam was performed. 2248: I reevaluated the patient. Discussed results and discharge instructions. He verbalized understanding and agreement. The patient is ready for discharge. Medical Decision Prior records/ancillary studies reviewed. Triage Nursing notes reviewed. Differential diagnosis: Etiologies such as migraine headache, meningitis, sinusitis, CO exposure, ICH, SAH, infection, tumor, headache, sinus thrombosis, arterial dissection, as well as others were entertained. Patient presents complaining today of some shortness of breath headache and diffuse body aches. States is occasionally happened over the last several days but worse today. No fevers. No trauma. Little bit of posterior left neck pain and again generalized headache. Has a history of migraines and states this does feel similar to previous including his of previous anxiety attacks. Nausea and vomiting today but denies significant abdominal pain. Tells me he believes he is having anxiety attack. Has not tried any medicines at home. Basic blood work EKG and chest x-ray were obtained. No neurological deficits do not believe that we need a CT of the head at this point. Do not believe this represents subarachnoid hemorrhage. Treated symptomatically with Compazine , Benadryl, and Toradol. Given fluid rehydration. Denies any active drug use recently. Benign abdomen. Does not appear meningitic. Feeling improved at this although slightly jittery. Given her normal dose of Ativan. Feel at this time patient is stable for discharge. Believe his symptoms are predominantly migraine and anxiety related. Recommended outpatient follow-up in the next 3-5 days. Discussed return criteria. Medication Reconcilliation Current Medication List: was personally reviewed by me Blood Pressure Screening Patient's blood pressure: Normal blood pressure Blood pressure disposition: Did not require urgent referral Impression Primary Impression: Migraine Additional Impression: Anxiety Scribe Attestation The scribe's documentation has been prepared under my direction and personally reviewed by me in its entirety. I confirm that the note above accurately reflects all work, treatment, procedures, and medical decision making performed by me. Departure Information Dispostion Home / Self-Care Referrals Ti Woo M.D. (PCP) Forms HOME CARE DOCUMENTATION FORM, IMPORTANT VISIT INFORMATION, WORK / SCHOOL INSTRUCTIONS Patient Instructions Anxiety Body Response, My Phone Warrior Additional Instructions Please continue to maintain hydration and eat. Would recommend close outpatient follow-up with your regular doctor in the next 3-4 days. If you have new or worsening concerning symptoms please return here for reevaluation. Do not operate heavy machinery or drive for the next 12 hours given the medications received here. Problem Qualifiers Primary Impression: Migraine Migraine type: without aura Status migrainosus presence: without status migrainosus Intractability: not intractable Qualified Codes: G43.009 - Migraine without aura, not intractable, without status migrainosus
[2018-04-12 21:15] LABS: BASO % 0.3 %; BASO ABS # 0.03 K/uL (0-0.2); EOS % 0.3 %; EOS ABS # 0.03 K/uL (0-0.5); HEMATOCRIT 46.9 % (42-52); HEMOGLOBIN 16.9 g/dL (14.0-18.0); IG# 0.03 K/uL (0.00-0.02); LYMPH % 12.5 %; LYMPH ABS # 1.49 K/uL (1.2-3.4); MEAN CELL VOLUME 85.7 fL (80-100); MEAN CORPUSCULAR HEMOGLOBIN 30.9 pg (25-34); MEAN PLATELET VOLUME 11.4 fL (7.4-10.4); MONO % 8.2 %; MONO ABS # 0.97 K/uL (0.11-0.59); NEUT % 78.4 %; NEUT ABS # 9.33 K/uL (1.4-6.5); PLATELET COUNT 201 K/uL (130-400); RED CELL DISTRIBUTION WIDTH CV 12.9 % (11.5-14.5); RED CELL DISTRIBUTION WIDTH SD 40.6 fL (36.4-46.3); WHITE BLOOD COUNT 11.88 K/uL (4.8-10.8)
--- NOTE | 2018-04-12 21:28 | DIAGNOSTIC IMAGING REPORT ---
CHEST ONE VIEW PORTABLE CLINICAL HISTORY: Shortness of breath COMPARISON STUDY: 03/19/2017 FINDINGS: The cardiac and mediastinal contours are normal. There is no evidence of focal pulmonary consolidation. There is no evidence of failure. No pleural effusions are visualized.[ IMPRESSION: No active disease in the chest. Electronically signed by: Schuyler Fajardo M.D. 04/12/2018 9:27 PM Dictated Date/Time: 04/12/2018 9:27 PM
[2018-04-12] MEDS ORDERED: AMPH20CA3 PO (21:38)
[2018-04-12] MEDS ORDERED: PARO1TAB27 PO (21:40)
[2018-04-12 21:43] LABS: ALBUMIN 4.3 gm/dl (3.4-5.0); ALKALINE PHOSPHATASE 80 U/L (45-117); ALT/SGPT 42 U/L (12-78); AST/SGOT 21 U/L (15-37); BLOOD UREA NITROGEN 15 mg/dl (7-18); CALCIUM 8.8 mg/dl (8.5-10.1); CARBON DIOXIDE 25 mmol/L (21-32); CREATININE 0.95 mg/dl (0.60-1.40); GLUCOSE 89 mg/dl (70-99); POTASSIUM 3.4 mmol/L (3.5-5.1); SODIUM 136 mmol/L (136-145); TOTAL PROTEIN 7.9 gm/dl (6.4-8.2)
[2018-04-12] MEDS ORDERED: LORAZEPAM 1 MG TAB PO STA (22:10)
[2018-04-12 23:10] VITALS: BP 139/67; PULSE 95; O2SAT 96
== END 2018-04-12 23:13 | disposition home or self-care (01) ==
LOC: EDBD 20:14 → C.EDB 20:16
DX: G43.009 Migraine without aura, not intractable, without status migrainosus (principal); F41.9 Anxiety disorder, unspecified; F90.9 Attention-deficit hyperactivity disorder, unspecified type; Z79.899 Other long term (current) drug therapy; Z88.6 Allergy status to analgesic agent; F17.200 Nicotine dependence, unspecified, uncomplicated

== ENCOUNTER 2018-04-16 10:39 | Emergency (ER) | payer OTHER ==
[~2018-04-16] VITALS: Ht 175.3 cm; Wt 78.4 kg
[~2018-04-16 10:39] MED LIST changes: +AMPH20CA3 PO; -AMPH20TA2 PO; -CLON1TAB5 PO; +PARO1TAB27 PO
[2018-04-16 10:44] VITALS: TEMP 36.6; Ht 175.3 cm; Wt 78.4 kg
[2018-04-16] MEDS ORDERED: PROMETHAZINE HCL INJ 25 MG/ML 1 ML VIAL IV STA (10:54)
[2018-04-16] MEDS ORDERED: ONDANSETRON INJ 2 MG/ML 2 ML VIAL IV STA (10:54)
[2018-04-16] MEDS ORDERED: RANITIDINE HCL 50 MG/100 ML D5W IV STA (10:54)
[2018-04-16] MEDS ORDERED: PANTOprazole INJ 80 MG in DEXTROSE 5% 100ML 100 ML IV STA (10:54)
[2018-04-16] MEDS ORDERED: SODIUM CHLORIDE 0.9% 1000ML 2,000 ML IV STA (10:54)
[2018-04-16] MEDS ORDERED: PROMETHAZINE HCL INJ 12.5 MG in SODIUM CHLORIDE 0.9% 50ML 50 ML IV ONE (11:15)
[2018-04-16] MEDS ORDERED: RANITIDINE IV 50 MG in DEXTROSE 5% 100ML 100 ML IV ONE (11:15)
[2018-04-16 11:16] LABS: BASO % 0.1 %; BASO ABS # 0.01 K/uL (0-0.2); HEMATOCRIT 45.6 % (42-52); HEMOGLOBIN 16.3 g/dL (14.0-18.0); IG# 0.03 K/uL (0.00-0.02); LYMPH % 13.7 %; LYMPH ABS # 1.35 K/uL (1.2-3.4); MEAN CELL VOLUME 84.1 fL (80-100); MEAN CORPUSCULAR HEMOGLOBIN 30.1 pg (25-34); MEAN CORPUSCULAR HGB CONC 35.7 g/dl (32-36); MEAN PLATELET VOLUME 11.1 fL (7.4-10.4); MONO % 11.5 %; MONO ABS # 1.13 K/uL (0.11-0.59); NEUT % 74.4 %; NEUT ABS # 7.31 K/uL (1.4-6.5); PLATELET COUNT 205 K/uL (130-400); RED CELL DISTRIBUTION WIDTH SD 39.1 fL (36.4-46.3); WHITE BLOOD COUNT 9.83 K/uL (4.8-10.8)
[2018-04-16 11:36] LABS: ALBUMIN 4.6 gm/dl (3.4-5.0); CALCIUM 9.7 mg/dl (8.5-10.1); CREATININE 0.93 mg/dl (0.60-1.40); POTASSIUM 3.5 mmol/L (3.5-5.1); TOTAL PROTEIN 8.2 gm/dl (6.4-8.2)
--- NOTE | 2018-04-16 11:43 | DIAGNOSTIC IMAGING REPORT ---
PA CHEST WITH ABDOMINAL SERIES CLINICAL HISTORY: Generalized abdominal pain. Hematemesis. FINDINGS: A PA chest radiograph is compared to study dated 04/12/2018. The cardiomediastinal silhouette is unremarkable. The lungs and pleural spaces are clear. No pneumothorax is seen. The bony thorax is grossly intact. Supine and erect abdominal radiographs are correlated with abdominal CT dated 12/11/2016. There is a nonobstructed abdominal bowel gas pattern. No evidence of intraperitoneal free air is seen. Thick walled small bowel loops are suggested in the left mid abdomen. There are no abnormal abdominal calcifications. The lumbosacral spine and bony pelvis appear intact. A bone island is again noted in the left iliac wing. IMPRESSION: 1. No active disease in the chest. 2. Nonobstructed abdominal bowel gas pattern. 3. Thick walled small bowel loops are suggested in the left mid abdomen. Correlate clinically for evidence of a nonspecific enteritis. Electronically signed by: Aleksandr Marmolejo M.D. 04/16/2018 11:41 AM Dictated Date/Time: 04/16/2018 11:39 AM
--- NOTE | 2018-04-16 12:08 | DIAGNOSTIC IMAGING REPORT ---
ABDOMINAL ULTRASOUND, RIGHT UPPER QUADRANT HISTORY: Epigastric pain. Vomiting.. COMPARISON: Abdomen and pelvis CT 12/11/2016. FINDINGS: Pancreas: The pancreatic tail is obscured by overlying bowel gas. The remaining portions of the pancreas are within normal limits. Liver: Unremarkable. Gallbladder: No gallbladder wall thickening. No gallstones. There are sludge partially filling the gallbladder. CBD: 3 mm. Right kidney: No hydronephrosis. IMPRESSION: Gallbladder sludge. No gallstones. No gallbladder wall thickening Electronically signed by: Nicholas Fang M.D. 04/16/2018 12:06 PM Dictated Date/Time: 04/16/2018 12:05 PM
[2018-04-16] MEDS ORDERED: ONDA4TAB10 SL (12:45)
[2018-04-16] MEDS ORDERED: RANI150T85 PO (12:45)
[2018-04-16 13:29] VITALS: BP 135/90; PULSE 63; O2SAT 98
--- NOTE | 2018-04-16 13:43 | EMERGENCY ROOM VISIT NOTE ---
History Report prepared by Meghan: Melania Ta Under the Supervision of: Dr. Aleksandr Martinez M.D. First contact with patient: 10:52 Chief Complaint: VOMITING Stated Complaint: ABD PAIN,VOMITING BLOOD History of Present Illness The patient is a 32 year old male who presents to the Emergency Room with complaints of worsening abdominal pain over the last 4 days. He rates his abdominal pain at a 9/10. The patient also reports having diarrhea and vomiting recently, but denies having blood in the diarrhea. The patient states that he has had abdominal issues over the last year. He reports that he has also had throat pain secondary to acid. He also reports having issues with heart burn. The patient reports that the last time he had these symptoms that he went to an ED and was given medications that helped him. The patient reports that he takes Prilosec for these symptoms but states that he forgot to take it over the last couple of days. Per family, the patient has been unable to eat over the last several days. The patient denies having any fevers. The patient denies a history of abdominal surgeries and reports that he has not had any recent changes in his medications. Source of History: patient, family Onset: over the last 4 days Position: abdomen Symptom Intensity: rated at a 9/10 Quality: other (pain) Timing: worsening Associated Symptoms: + vomiting, + diarrhea, No fevers Note: denies:blood in diarrhea Review of Systems See HPI for pertinent positives & negatives. A total of 10 systems reviewed and were otherwise negative. Past Medical & Surgical Medical Problems: (1) Abdominal pain (2) attention deficit disorder (3) Dehydration (4) Dehydration (5) Dental caries (6) Diffuse abdominal pain (7) [id number] (DTP) vaccination (8) Heroin abuse (9) Influenza-like symptoms (10) Intractable vomiting (11) Laceration (12) Malnutrition (13) Malnutrition (14) Nausea & vomiting (15) Nausea, vomiting and diarrhea (16) Nephrotic syndrome (17) Odontalgia (18) Opioid withdrawal (19) Opioid withdrawal (20) Overdose (21) Pain, dental (22) Probable Reaction to Methadone (23) Right forearm pain (24) Severe headache (25) Viral illness Surgical Problems: (1) S/P tonsillectomy (2) Status post tooth extraction Family History Diabetes mellitus Heart disease Kidney disease Stroke Social History Smoking Status: Current Every Day Smoker Alcohol Use: none Drug Use: heroin Marital Status: in relationship Housing Status: lives with significant other Occupation Status: unemployed, disabled Current/Historical Medications Scheduled Amphetamine-Dextroamphetamine 20MG (Adderall Xr 20MG), 20 MG PO TID Mirtazapine (Remeron), 30 MG PO HS Ondasetron Odt (Zofran Odt), 4-8 MG SL Q6H Paroxetine (Paxil), Unknown Dose PO DAILY Ranitidine (Zantac), 150 MG PO BID Allergies Coded Allergies: Acetaminophen (Verified Adverse Reaction, Unknown, Liver issues, 04/16/18) Physical Exam Vital Signs Date Time Temp Pulse Resp B/P (MAP) Pulse Ox O2 Delivery O2 Flow Rate FiO2 04/16/18 12:28 61 16 118/68 99 04/16/18 10:44 36.6 82 18 135/82 96 Room Air Physical Exam GENERAL: Patient is in no acute distress. HEENT: No acute trauma, normocephalic atraumatic, mucous membranes moist, no nasal congestion, no scleral icterus. NECK: No stridor, no adenopathy, no meningismus, trachea is midline. LUNGS: Clear to auscultation bilaterally, no wheeze, no rhonchi, breath sounds equal. HEART: Without murmurs gallops or rubs, regular rate and rhythm. ABDOMEN: Soft, moderately tender in the epigastrium, bowel sounds positive, no hernias, no peritonitis. EXTREMITIES: No cyanosis or edema, full range of motion of all the joints without pain or difficulty, no signs for acute trauma. NEUROLOGIC: Oriented x 3, no acute motor or sensory deficits, no focal weakness. SKIN: No rash, no jaundice, no diaphoresis. Medical Decision & Procedures ER Provider Diagnostic Interpretation: Radiology results as stated below per my review and radiologist interpretation: ABDOMINAL ULTRASOUND, RIGHT UPPER QUADRANT HISTORY: Epigastric pain. Vomiting.. COMPARISON: Abdomen and pelvis CT 12/11/2016. FINDINGS: Pancreas: The pancreatic tail is obscured by overlying bowel gas. The remaining portions of the pancreas are within normal limits. Liver: Unremarkable. Gallbladder: No gallbladder wall thickening. No gallstones. There are sludge partially filling the gallbladder. CBD: 3 mm. Right kidney: No hydronephrosis. IMPRESSION: Gallbladder sludge. No gallstones. No gallbladder wall thickening Electronically signed by: Nicholas Fang M.D. 04/16/2018 12:06 PM Dictated Date/Time: 04/16/2018 12:05 PM PA CHEST WITH ABDOMINAL SERIES CLINICAL HISTORY: Generalized abdominal pain. Hematemesis. FINDINGS: A PA chest radiograph is compared to study dated 04/12/2018. The cardiomediastinal silhouette is unremarkable. The lungs and pleural spaces are clear. No pneumothorax is seen. The bony thorax is grossly intact. Supine and erect abdominal radiographs are correlated with abdominal CT dated 12/11/2016. There is a nonobstructed abdominal bowel gas pattern. No evidence of intraperitoneal free air is seen. Thick walled small bowel loops are suggested in the left mid abdomen. There are no abnormal abdominal calcifications. The lumbosacral spine and bony pelvis appear intact. A bone island is again noted in the left iliac wing. IMPRESSION: 1. No active disease in the chest. 2. Nonobstructed abdominal bowel gas pattern. 3. Thick walled small bowel loops are suggested in the left mid abdomen. Correlate clinically for evidence of a nonspecific enteritis. Electronically signed by: Aleksandr Marmolejo M.D. 04/16/2018 11:41 AM Dictated Date/Time: 04/16/2018 11:39 AM Laboratory Results 04/16/18 11:04 Red Blood Count 5.42, Mean Corpuscular Volume 84.1, Mean Corpuscular Hemoglobin 30.1, Mean Corpuscular Hemoglobin Concent 35.7, Mean Platelet Volume 11.1, Neutrophils (%) (Auto) 74.4, Lymphocytes (%) (Auto) 13.7, Monocytes (%) (Auto) 11.5, Eosinophils (%) (Auto) 0.0, Basophils (%) (Auto) 0.1, Neutrophils # (Auto ) 7.31, Lymphocytes # (Auto) 1.35, Monocytes # (Auto) 1.13, Eosinophils # (Auto ) 0.00, Basophils # (Auto) 0.01 04/16/18 11:04 Test 04/16/18 11:04 White Blood Count 9.83 K/uL (4.8-10.8) Red Blood Count 5.42 M/uL (4.7-6.1) Hemoglobin 16.3 g/dL (14.0-18.0) Hematocrit 45.6 % (42-52) Mean Corpuscular Volume 84.1 fL (80-100) Mean Corpuscular Hemoglobin 30.1 pg (25-34) Mean Corpuscular Hemoglobin Concent 35.7 g/dl (32-36) Platelet Count 205 K/uL (130-400) Mean Platelet Volume 11.1 fL (7.4-10.4) Neutrophils (%) (Auto) 74.4 % Lymphocytes (%) (Auto) 13.7 % Monocytes (%) (Auto) 11.5 % Eosinophils (%) (Auto) 0.0 % Basophils (%) (Auto) 0.1 % Neutrophils # (Auto) 7.31 K/uL (1.4-6.5) Lymphocytes # (Auto) 1.35 K/uL (1.2-3.4) Monocytes # (Auto) 1.13 K/uL (0.11-0.59) Eosinophils # (Auto) 0.00 K/uL (0-0.5) Basophils # (Auto) 0.01 K/uL (0-0.2) RDW Standard Deviation 39.1 fL (36.4-46.3) RDW Coefficient of Variation 13.0 % (11.5-14.5) Immature Granulocyte % (Auto) 0.3 % Immature Granulocyte # (Auto) 0.03 K/uL (0.00-0.02) Anion Gap 10.0 mmol/L (3-11) Est Creatinine Clear Calc Drug Dose 115.1 ml/min Estimated GFR () 126.3 Estimated GFR (Non- 109.0 BUN/Creatinine Ratio 17.4 (10-20) Calcium Level 9.7 mg/dl (8.5-10.1) Magnesium Level 1.8 mg/dl (1.8-2.4) Total Bilirubin 0.7 mg/dl (0.2-1) Aspartate Amino Transf (AST/SGOT) 28 U/L (15-37) Alanine Aminotransferase (ALT/SGPT) 36 U/L (12-78) Alkaline Phosphatase 76 U/L (45-117) Total Protein 8.2 gm/dl (6.4-8.2) Albumin 4.6 gm/dl (3.4-5.0) Globulin 3.6 gm/dl (2.5-4.0) Albumin/Globulin Ratio 1.3 (0.9-2) Lipase 78 U/L (73-393) Laboratory results reviewed by me. Medications Administered Medications (Trade) Dose Ordered Sig/Oma Route Start Time Stop Time Status Last Admin Dose Admin Sodium Chloride 2,000 ml @ 999 mls/hr Q2H1M STAT IV 04/16/18 10:54 04/16/18 12:54 DC 04/16/18 11:27 999 MLS/HR Ondansetron HCl (Zofran Inj) 4 mg NOW STAT IV 04/16/18 10:54 04/16/18 10:59 DC 04/16/18 11:28 4 MG Pantoprazole Sodium 80 mg/ Dextrose 120 ml @ 400 mls/hr NOW STAT IV 04/16/18 10:54 04/16/18 11:11 DC 04/16/18 12:21 400 MLS/HR Promethazine HCl 12.5 mg/Sodium Chloride 50.5 ml @ 202 mls/hr NOW ONCE IV 04/16/18 11:15 04/16/18 11:29 DC 04/16/18 11:27 202 MLS/HR Ranitidine HCl 50 mg/Dextrose 102 ml @ 204 mls/hr NOW ONCE IV 04/16/18 11:15 04/16/18 11:44 DC 04/16/18 12:45 204 MLS/HR ED Course 1053: The patient was evaluated in room C5. A complete history and physical exam was performed. 1054: Ordered Pantoprazole Sodium 80 mg/Dextrose 120 ml @ 400 mls/hr IV, Zofran Inj 4 mg IV, Sodium Chloride 2000 ml @ 999 mls/hr IV. 1115: Ordered Ranitidine HCl 50 mg/Dextrose 102 ml @ 204 mls/hr IV, Promethazine HCl 12.5 mg/Sodium Chloride 50.5 ml @ 202 mls/hr IV. 1243: Reevaluated the patient. Discussed results and discharge instructions: He verbalized understanding and agreement. The patient is ready for discharge. Medical Decision The patient is a 32 year old male who presents to the ED with complaints of abdominal pain. Differential diagnoses considered include gastritis, reflux, ulcer, dehydration, viral or food borne illness, biliary colic, and acute cholecystitis. There is no leukocytosis or concerning anemia. No significant electrolyte abnormality, kidney failure, hepatitis or pancreatitis. Obstruction series does not show bowel obstruction, free air or pneumonia. Gallbladder ultrasound does not show acute cholecystitis or gallstones, some potential gallbladder sludge was seen. On my exam, the patient was not febrile or toxic. He was somewhat tender in the epigastrium, no lower abdominal tenderness. Patient received IV Phenergan and IV Zofran. He was given IV saline. He received IV Protonix and IV Zantac. He is feeling improved. I think the patient's symptoms are related to gastritis, he has had this issue before. He is being discharged on Prilosec, Zantac and Zofran, a bland diet was suggested. If worsening, he can return. He was reassured and stable upon discharge. Medication Reconcilliation Current Medication List: was personally reviewed by me Blood Pressure Screening Patient's blood pressure: Normal blood pressure Impression Primary Impression: Nausea, vomiting, and diarrhea Additional Impression: Dehydration Scribe Attestation The scribe's documentation has been prepared under my direction and personally reviewed by me in its entirety. I confirm that the note above accurately reflects all work, treatment, procedures, and medical decision making performed by me. Departure Information Dispostion Home / Self-Care Prescriptions Ranitidine (Zantac) 150 Mg Tab 150 MG PO BID for 14 Days, #28 TAB Prov: Aleksandr Martinez M.D. 04/16/18 Ondasetron Odt (ZOFRAN ODT) 4 Mg Tab 4-8 MG SL Q6H for Nausea, #20 TAB Prov: Aleksandr Martinez M.D. 04/16/18 Referrals Ti Woo M.D. (PCP) Forms HOME CARE DOCUMENTATION FORM, IMPORTANT VISIT INFORMATION Patient Instructions My [facility] Additional Instructions follow with nate bennett this week for a recheck use the prilosec daily use zantac 2x per day for 2 weeks use zofran 1-2 tab every 6 hours for nausea bland diet---crackers, soup, toast, gatorade, rice return for worsening symptoms, worsening pain, fever or if not improving Problem Qualifiers
== END 2018-04-16 13:29 | disposition home or self-care (01) ==
LOC: C.EDB 10:40 → C.EDC 13:29
DX: R11.2 Nausea with vomiting, unspecified (principal); R19.7 Diarrhea, unspecified; E86.0 Dehydration; F98.8 Other specified behavioral and emotional disorders with onset usually occurring in childhood and adolescence; F17.200 Nicotine dependence, unspecified, uncomplicated; Z88.8 Allergy status to other drugs, medicaments and biological substances